=== PATIENT | male | born 1945 | race Caucasian/White ===

== ENCOUNTER 2019-06-16 07:26 | Outpatient (CLI) | payer MEDICARE, SELFPAY ==
--- NOTE | 2019-06-24 12:49 | SLEEP_ITS ---
Home Sleep Test. DATE OF STUDY: 06/16/2019 ORDERING PHYSICIAN: Jose Guadalupe Fountain M.D. REASON FOR THE STUDY: Sleep apnea, snoring. HISTORY: The patient is a 74-year-old man, 5 feet 11 inches tall, weighing 230 pounds with a body mass index of 32. He has a history of loud snoring, is constantly loud enough that others complain about it. He frequently awakens from sleep feeling short of breath with heartburn, belching, and coughing. He wakes up during the night, early in the morning, and has excessive daytime sleepiness. He occasionally has trouble sleeping with a cold. He frequently gasps for breath at night. He frequently has problems reported to him by others. He occasionally sweats excessively at night, frequently notices his heart pounding irregularly at night, constantly falls asleep during the day, although not involuntarily. He denies falling asleep while driving or with physical effort. He frequently has loss of muscle tone with strong emotion. He denies having daytime difficulties due to excessive sleepiness, he is retired. He does not feel paralyzed on waking or falling asleep. He rarely has vivid dreamlike scenes upon awakening or falling asleep. He is never afraid to go to sleep. He frequently has nightmares. He occasionally remembers his dreams. He constantly has racing thoughts. He occasionally feels sad or depressed. He constantly has anxiety. He frequently notices parts of his body jerking, constantly kicks at night, constantly has crawly achy feelings in his legs and leg pain during the night. He occasionally has morning jaw pain. He frequently grinds his teeth at night and is bothered by pain during the day. He constantly is awakened by pain at night. He frequently wakes up feeling stiff in the morning with sore achy muscles. He occasionally wakes up with pain in the neck and spine. He has dizziness, fatigue, memory problems, tension, depression, and nightmares. Normal bedtime is 9:30 p.m., taking 20 minutes to fall asleep typically waking 3 or 4 times during the night. When these events occur, he will try to go back to sleep. He does not mention whether or not he has nocturia. He wakes in the morning at 6 o'clock. Weekend schedule reveals goes to bed at 10 p.m. and wakes at 7 a.m. He does take naps in the afternoon or evening. A short nap can be refreshing. He feels better in the morning than other times of day. MEDICAL COMORBIDITIES: Diabetes mellitus type 2 with hyperglycemia, history of sinusitis, cough, hypertension. MEDICATIONS: 1. Gabapentin 400 mg b.i.d. 2. Metformin 1000 mg twice a day. 3. Rosuvastatin 40 mg a day. 4. Tamsulosin 0.4 mg daily. 5. Paroxetine 40 mg a day for depression. 6. Levothyroxine 137 mcg a day for hypothyroidism. 7. NovoLog insulin through a pump. HABITS: Never smoked tobacco. Caffeine, 2 cups of coffee a day. No alcohol. No recreational drugs. DESCRIPTION OF THE STUDY: On the [place] Sleepiness Scale, his score is 13. This was conducted as an unattended type 3 portable home sleep test using 4 channel monitoring including respiratory effort channel, snoring channel, oxygen saturation channel, and heart rate channel. The study was scored using CMS guidelines. Duration 8 hours 47 minutes. The apnea-hypopnea index is 10. Oxygen desaturation index is 9. Lowest desaturation is 83%. He had 24 apneas, the majority 83% or 20 apneas were obstructive, 17% or 4 apneas were central. He had 62 hypopneas, 686 snoring events, and 76 desaturations spending 133 minutes or 25% of the study below 88% saturation. Heart rate ranged from 60 to 88. IMPRESSION: 1. This home sleep test shows evidence of at least mild obstructive sleep apnea syndrome G47.33 with an apnea-hypopnea index of 10, d
== END 2019-06-16 07:27 | disposition home or self-care (01) ==
LOC: ANHCSM 07:27
PROVIDERS: PCP Family Medicine; Visit Provider Family Medicine
DX: G47.30 Sleep apnea, unspecified (principal); G47.10 Hypersomnia, unspecified; R06.83 Snoring; E11.9 Type 2 diabetes mellitus without complications
CPT/HCPCS: 95806

== ENCOUNTER 2019-12-27 15:52 | Outpatient (CLI) | payer MEDICARE, SELFPAY ==
[2019-12-27 16:30] LABS: Hematocrit 41.9 % (42.0-52.0); Hemoglobin 13.7 g/dL (14.0-18.0)
--- NOTE | 2019-12-27 16:36 | ECG_ITS ---
Measurements Intervals [place] Rate: 68 P: 66 [place]: 188 QRS: -33 QRSD: 126 T: 11 QT: 378 QTc: 403 Interpretive Statements SINUS RHYTHM RIGHT BUNDLE BRANCH BLOCK INFERIOR INFARCT, AGE INDETERMINATE ABNORMAL ECG Electronically Signed On 12-27-2019 16:45:35 CDT by Wesley Frederick D.O.
[2019-12-27 16:41] LABS: Urine Cotinine NEGATIVE
[2019-12-27 16:41] LABS: Albumin Level 4.5 g/dL (3.5-5.1); Estimated Glomerular Filt Rate 54
== END 2019-12-27 15:53 | disposition home or self-care (01) ==
PROVIDERS: PCP Family Medicine; Visit Provider Orthopaedic Surgery
DX: Z01.818 Encounter for other preprocedural examination (principal); M17.12 Unilateral primary osteoarthritis, left knee; I45.10 Unspecified right bundle-branch block; E11.9 Type 2 diabetes mellitus without complications; E78.5 Hyperlipidemia, unspecified; Z79.4 Long term (current) use of insulin
CPT/HCPCS: 80307; 82040; 82565; 83036; 85014; 85018; 93005

== ENCOUNTER 2020-01-05 09:27 | Outpatient (CLI) | payer MEDICARE, SELFPAY ==
--- NOTE | 2020-01-05 10:30 | NEURO_ITS ---
Patient Number: [id number] Impression: # Insulin dependent diabetic complains of numbness of left hand. # Left ulnar neuropathy across the elbow. # Needle/EMG exam abnormal. # Clinical correlation recommended. Nerve Conduction Studies Anti Sensory Summary Table Stim Site NR Peak (ms) P-T Amp (?V) Site1 Site2 Delta-P (ms) Dist (cm) Aravind (m/s) Left Median Anti Sensory (2-3nd Digit) Wrist 3.3 45.4 Wrist 2-3nd Digit 3.3 14.0 42 Wrist 3.3 20.5 Wrist 2-3nd Digit 3.3 14.0 42 Left Radial Anti Sensory (Base 1st Digit) Wrist 2.4 13.8 Wrist Base 1st Digit 2.4 0.0 Left Ulnar Anti Sensory (5th Digit) Wrist 3.5 9.4 Wrist 5th Digit 3.5 14.0 40 Motor Summary Table Stim Site NR Onset (ms) O-P Amp (mV) Site1 Site2 Delta-0 (ms) Dist (cm) Aravind (m/s) Left Median Motor (Abd Poll Brev) Wrist 3.7 4.6 Elbow Wrist 5.8 31.0 53 Elbow 9.5 2.0 Left Ulnar Motor (Abd Dig Minimi) Wrist 3.0 6.1 A Elbow Wrist 7.9 31.0 39 A Elbow 10.9 3.9 B Elbow Wrist 5.6 25.0 45 B Elbow 8.6 4.0 F Wave Studies NR F-Lat (ms) L-R F-Lat (ms) Left Median (Mrkrs) (Abd Poll Brev) 32.17 Left Ulnar (Mrkrs) (Abd Dig Min) 33.69 EMG Side Muscle Nerve Root Ins Act Fibs Amp Dur Recrt Comment Left 1stDorInt Ulnar C8-T1 Nml Nml Incr >12ms Reduced Left Ext Indicis Radial (Post Int) C7-8 Nml Nml Nml Nml Nml Left Ext Digitorum Radial (Post Int) C7-8 Nml Nml Nml Nml Nml Left BrachioRad Radial C5-6 Nml Nml Nml Nml Nml Left PronatorTeres Median C6-7 Nml Nml Nml Nml Nml Left Abd Poll Brev Median C8-T1 Nml Nml Nml Nml Nml Left ABD Dig Min Ulnar C8-T1 Nml Nml Incr >12ms Reduced MTDD
== END 2020-01-05 09:28 | disposition home or self-care (01) ==
PROVIDERS: PCP Family Medicine; Visit Provider Physician Assistant
DX: M79.602 Pain in left arm (principal); R20.0 Anesthesia of skin; E11.9 Type 2 diabetes mellitus without complications; G56.22 Lesion of ulnar nerve, left upper limb; Z79.4 Long term (current) use of insulin
CPT/HCPCS: 95886; 95909

== ENCOUNTER 2020-01-06 07:42 | Outpatient (CLI) | payer MEDICARE, SELFPAY ==
[2020-01-06 09:22] LABS: Basophils Percent Auto 0.6 % (0.2-1.2); Eosinophils Absolute Auto 0.2 K/mm3 (0-0.3); Eosinophils Percent Auto 3.6 % (0-4.4); Hematocrit 41.1 % (42.0-52.0); Hemoglobin 13.5 g/dL (14.0-18.0); Immature Granulocyte Absolute 0.01 K/mm3 (0.00-0.031); Immature Granulocyte Percent A 0.2 % (0-0.5); Lymphocytes Percent Auto 21.7 % (18.3-44.2); Mean Corpuscular HGB Conc 32.8 g/dl (32-36); Mean Corpuscular Hemoglobin 29.2 pg (26-34); Monocytes Absolute Auto 0.5 K/mm3 (0.1-0.6); Monocytes Percent Auto 9.5 % (2.6-8.5); Neutrophils Absolute Auto 3.3 K/mm3 (1.3-6.7); Neutrophils Percent Auto 64.4 % (45.5-73.1); Platelet Count Result 179 k/mm3 (150-375); Red Blood Count 4.62 M/mm3 (4.6-6.20); Red Cell Distribution Width 12.6 % (11.5-14.5); White Blood Count 5.1 K/mm3 (4.5-10.0)
[2020-01-06 09:39] LABS: Anion Gap 7 mmol/L (8-16); Blood Urea Nitrogen 19 mg/dL (9-20); Carbon Dioxide 29 mmol/L (22-30); Chloride 105 mmol/L (98-107); Estimated Glomerular Filt Rate > 60; Glucose 167 mg/dL (75-110); Potassium 4.9 mmol/L (3.4-5.0); Sodium 141 mmol/L (137-145)
== END 2020-01-06 07:43 | disposition home or self-care (01) ==
LOC: ANHSURGERY 07:44
PROVIDERS: Anesthesiology; PCP Family Medicine; Visit Provider Orthopaedic Surgery
DX: M17.12 Unilateral primary osteoarthritis, left knee (principal); E11.65 Type 2 diabetes mellitus with hyperglycemia; Z79.4 Long term (current) use of insulin; Z01.818 Encounter for other preprocedural examination
CPT/HCPCS: 36415; 80048; 85025; 87081

== ENCOUNTER 2020-01-08 01:26 | Outpatient (CLI) | payer MEDICARE, SELFPAY ==
[2020-01-08 17:59] LABS: SARS-CoV-2 RNA PCR Negative
== END 2020-01-08 01:27 | disposition home or self-care (01) ==
LOC: ANHCOVIDDT 01:27
PROVIDERS: Internal Medicine Critical Care Medicine; PCP Family Medicine; Visit Provider Orthopaedic Surgery
DX: Z01.812 Encounter for preprocedural laboratory examination (principal); Z20.828 Contact with and (suspected) exposure to other viral communicable diseases
CPT/HCPCS: 87635; C9803; U0003

== ENCOUNTER 2020-01-11 08:51 | Outpatient (CLI) | payer MEDICARE, SELFPAY ==
--- NOTE | 2020-01-25 16:27 | WPDSLEEPSTUD ---
Sleep Study Date of Study: 01/11/20 Ordering Provider: Nav Cabrera PA-C Interpreting Physician: Heidy Sánchez MD Sleep Study Type: CPAP Titration Height: 1.8 m Weight: 104.326 kg Body Mass Index: 32.1 Neck Circumference: 45.72 cm [place]: 8 Reason for Sleep Study Home sleep test June 16, 2019 with mild obstructive sleep apnea AHI 10 with desaturation 83% and low baseline saturation during the study at 89%, mostly obstructive events 87%. Sleep History Dat Morales is a 75-year-old man, 5 feet 11 inches tall, weighing 230 pounds with a body mass index of 32. His home sleep test on 06/16/2019 showed an AHI of 10 with desaturation to 83% and a low baseline of 89%. Most of his apneas 83% were obstructive. Due to his low baseline O2 saturaiton and 17% centrals, he returns to the sleep lab for a CPAP titration. His initial [place] was 13 however his current survey reveals that it is 8. He has a history of loud snoring, is constantly loud enough that others complain about it. He frequently awakens from sleep feeling short of breath with heartburn, belching, and coughing. He wakes up during the night, early in the morning, and has excessive daytime sleepiness. He occasionally has trouble sleeping with a cold. He frequently gasps for breath at night. He frequently has problems reported to him by others. He occasionally sweats excessively at night, frequently notices his heart pounding irregularly at night, constantly falls asleep during the day, although not involuntarily. He denies falling asleep while driving or with physical effort. He frequently has loss of muscle tone with strong emotion. He denies having daytime difficulties due to excessive sleepiness, he is retired. He does not feel paralyzed on waking or falling asleep. He rarely has vivid dreamlike scenes upon awakening or falling asleep. He is never afraid to go to sleep. He frequently has nightmares. He occasionally remembers his dreams. He constantly has racing thoughts. He occasionally feels sad or depressed. He constantly has anxiety. He frequently notices parts of his body jerking, constantly kicks at night, constantly has crawly achy feelings in his legs and leg pain during the night. He occasionally has morning jaw pain. He frequently grinds his teeth at night and is bothered by pain during the day. He constantly is awakened by pain at night. He frequently wakes up feeling stiff in the morning with sore achy muscles. He occasionally wakes up with pain in the neck and spine. He has dizziness, fatigue, memory problems, tension, depression, and nightmares. Normal bedtime is 9:30 p.m., taking 20 minutes to fall asleep typically waking 3 or 4 times during the night. When these events occur, he will try to go back to sleep. He does not mention whether or not he has nocturia. He wakes in the morning at 6 o'clock. Weekend schedule reveals goes to bed at 10 p.m. and wakes at 7 a.m. He does take naps in the afternoon or evening. A short nap can be refreshing. He feels better in the morning than other times of day. 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
[2020-01-26 13:11] VITALS: BMI 32.1
== END 2020-01-11 08:52 | disposition home or self-care (01) ==
PROVIDERS: PCP Family Medicine; Visit Provider Physician Assistant
DX: G47.33 Obstructive sleep apnea (adult) (pediatric) (principal)
CPT/HCPCS: 95811

== ENCOUNTER 2020-01-22 08:45 | Outpatient (CLI) | payer MEDICARE, SELFPAY ==
[2020-01-22 17:37] LABS: SARS-CoV-2 RNA PCR Negative
== END 2020-01-22 08:46 | disposition home or self-care (01) ==
LOC: ANHCOVIDDT 08:47
PROVIDERS: PCP Family Medicine; Visit Provider Orthopaedic Surgery
DX: Z01.812 Encounter for preprocedural laboratory examination (principal); Z20.828 Contact with and (suspected) exposure to other viral communicable diseases
CPT/HCPCS: 87635; C9803; U0003

== ENCOUNTER 2020-01-25 16:20 | Inpatient (IN) | payer MEDICARE, SELFPAY ==
[2020-01-06 07:59] VITALS: BMI 33.3
[2020-01-06 08:21] VITALS: BP 132/68; PULSE 66; RESP 16; TEMP 37.2; O2SAT 97
[2020-01-25] VITALS (12 sets, daily range): BP systolic 101–134; BP diastolic 50–66; PULSE 62–83; RESP 10–16; TEMP 36.1–36.8; O2SAT 94–97
--- NOTE | ~2020-01-25 | XR_ITS ---
EXAMINATION: XR knee LT 2V DATE: 01/25/2020 14:07 CDT INDICATION: Left total knee arthroplasty TECHNIQUE: 2 views left knee FINDINGS: There is a left total knee arthroplasty in expected position. Subcutaneous gas with fluid and air in the joint are consistent with recent surgery. No evidence of periprosthetic fracture. IMPRESSION: 1. Recent left total knee arthroplasty. Reviewed, dictated and finalized at location B.
--- NOTE | 2020-01-25 07:16 | WPDHPUPDATE1 ---
History and Physical Update Update Date/Time: 01/25/20 07:16 History and Physical has been reviewed, including an updated exam of the patient. There are NO changes in the patient's condition. Risks, benefits, and alternatives have been discussed and questions answered. Patient agrees to proceed with procedure.
[2020-01-25 08:45] LABS: Glucose Point of Care 213 (65-105)
[2020-01-25] MEDS: LACTATED RINGERS 1,000 ML 30 ML IV CONT ×2 (08:45→13:16)
[2020-01-25] MEDS: ACETAMINOPHEN 500 MG TABLET 1000 MG PO (09:00)
[2020-01-25] MEDS: TRANEXAMIC ACID 1,000MG/ISO100 1,000 MG/100 ML BAG 200 MG IVPB (09:10)
[2020-01-25] MEDS: KETOROLAC 15 MG/ML VIAL (*BKC) IV PUSH (09:19)
--- NOTE | 2020-01-25 09:21 | SUR.PREOP ---
0915- PT HAS A INSULIN PUMP RUNNING AT 2 UNITS PER HOUR WITH NOVALOG. PRE OP BLOOD SUGAR IS 213. SPOKE WITH DR. HOPSON AND HE STATED TO LET PT TREAT HE WOULD AND INSULIN PUMP WILL GO OFF DURING PROCEDURE. PT STATED HE WOULD DOSE HIMSELF WITH A EXTRA 2 UNITS. PT DOSED EXTRA 2 UNITS @ 09. WILL RECHECK BLOOD SUGAR BEFORE PT GOES TO OR.
--- NOTE | 2020-01-25 09:22 | WPDANESEPPF ---
Anes - Initial Pre Proc Eval Procedure: Operation Date: 01/25/20 10:30 Proposed Procedures p Left Total Knee Arthroplasty - Stalin Guajardo MD Date/Time: 01/25/20 09:22 Surgeon: Stalin Guajardo MD Pre Op Diagnosis: DJD left knee Patient Data Age: 75 Gender: M Height: 1.8 m Weight: 107.4 kg Last Vital Signs Temp 36.1 C L 01/25/20 08:56 Pulse 71 01/25/20 08:56 Resp 16 01/06/20 08:21 BP 132/61 01/25/20 08:56 Pulse Ox 96 01/25/20 08:56 Allergies Allergy/AdvReac Type Severity Reaction Status Date / Time empagliflozin Allergy Severe DIABETIC Verified 01/13/20 15:16 KETOACIDOSIS Home Medications Medication Instructions Recorded Confirmed Type aspirin 81 mg tablet,delayed 81 mg PO DAILY 04/20/19 01/25/20 History release gabapentin 400 mg capsule 400 mg PO TID 04/20/19 01/25/20 History metformin 1,000 mg tablet 1,000 mg PO BID 04/20/19 01/25/20 History paroxetine HCl 40 mg tablet 40 mg PO DAILY 04/20/19 01/25/20 History rosuvastatin 40 mg tablet 40 mg PO QPM 04/20/19 01/25/20 History tamsulosin 0.4 mg capsule 0.4 mg PO QPM 04/20/19 01/25/20 History insulin admin supplies #1 each 12/27/19 01/13/20 History Novolog U-100 Insulin aspart 2 units CONTINUOUS SUB-Q INFUSN 01/06/20 01/25/20 History (VIA WEARABLE INJECTR) Q60M ascorbic acid (vitamin C) 500 mg PO QAM 01/06/20 01/25/20 History cyanocobalamin (vitamin B-12) 1,000 mcg PO DAILY 01/06/20 01/25/20 History fluticasone propionate 2 spray INTRANASAL PRN PRN 01/06/20 01/25/20 History levothyroxine 100 mcg PO DAILY 01/06/20 01/25/20 History melatonin 6 mg PO HS PRN 01/06/20 01/25/20 History polyvinyl alcohol [Artificial 1 drp OPHTHALMIC (EYE) QID 01/06/20 01/25/20 History Tears (polyvin alc)] tadalafil 5 mg PO DAILY PRN 01/06/20 01/13/20 History Laboratory Tests 01/25/20 08:42 POC Capillary Glucose 213 mg/dl H mg/dl (65-105) ECG: Date of Service: 12/27/19 Procedure(s): CA 12 lead EKG Accession Number(s): [id number] cc: ~ Measurements Intervals [place] Rate: 68 P: 66 [place]: 188 QRS: -33 QRSD: 126 T: 11 QT: 378 QTc: 403 Interpretive Statements SINUS RHYTHM RIGHT BUNDLE BRANCH BLOCK INFERIOR INFARCT, AGE INDETERMINATE ABNORMAL ECG Electronically Signed On 12-27-2019 16:45:35 CDT by Wesley Frederick D.O. 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
--- NOTE | 2020-01-25 09:30 | WPDANESPNB ---
Anes - Peripheral Nerve Block Date/Time: 01/25/20 09:30 I have discussed with the patient/family/POA the placement of a peripheral nerve block for post-operative pain management, including associated risks, benefits, complications, and side effects. Alternative methods of post-operative analgesia were detailed. Questions were solicited and answers provided to the satisfaction of the patient/family/POA. Time-Out: A pre-procedural Time-Out was completed immediately before starting the procedure and confirmed: Patient Identification, Site, Procedure, Patient Position and the Availability of Requisite Equipment. Clinical Indications: Acute post-operative pain management requested by the operative surgeon. Nerve Block Insertion Note Anes-nerve block: adductor canal left Patient position: supine Skin prep: chlorhexidine Needle: 22 gauge, stimulating, insulated echogenic needle. Needle length: 80 mm Technique: ultrasound Technique comment: in plane Injectate: bupivacaine 0.5% with epi 5 mcg/ml (30cc) Observations: tolerated well Complications: none Procedure start time:: 1025 Procedure end time:: 1030
[2020-01-25 10:30] LABS: Glucose Point of Care 188 (65-105)
[2020-01-25] MEDS: ceFAZolin 2 GM/D5W 50 ML 2 GM/50 ML BAG IVPB (10:44)
[2020-01-25 13:35] LABS: Glucose Point of Care 173 (65-105)
--- NOTE | 2020-01-25 13:35 | SUR.PHASEI ---
1320- Clarified with Chris Galvez CRNA patient okay to resume use of insulin pump with BG 173. 1335- Patient resumed insulin pump.
--- NOTE | 2020-01-25 13:49 | P.OP_ITS ---
Procedure Note - Detailed Date of procedure: 01/25/20 Pre-op diagnosis: DJD left knee Post-op diagnosis: same Procedure performed: Total knee arthroplasty, left Description of procedure: Large medial to lateral sizing. Size 7 fit best M-L, despite modest anterior offset due to 1.5mm downsizing. Bone quality fair-good. PCL well preserved. Standard bone resections. Implants: Alecia [employer] size 7 cemented CR femur, size 7 cemented low- profile tibia, 13 mm CR polyethylene insert, 40 mm asymmetric all poly patellar component. Anesthesia: GETA and regional (subsartorial nerve block) Surgeon: Stalin Guajardo MD Estimated blood loss (mL): 100 Tourniquet time (min): 48 Drains: No Pathology: none sent Complications: None Condition: stable Disposition: PACU Findings: OPERATIVE DETAILS: The patient was given a nerve block preoperatively, and then brought to the operating room. A general anesthetic was administered. The leg was prepped and draped in the usual sterile fashion. The limb was elevated and the tourniquet inflated to 300 mmHg during initial exposure, and cementation. A longitudinal incision was created along the medial border of the patella and patellar tendon, and a minimally invasive optimized mid-vastus approach to the knee was performed. A mild medial release was taken. The knee was then flexed. The osteophytes were carefully removed. The intramedullary guide was placed in the femoral canal. The distal femoral resection was then taken with the oscillating saw. The collateral ligaments were carefully protected. The tibia was carefully exposed. The jig was applied, and the proximal tibia was resected according to preoperative plan. The pain anesthetic mixture was injected into the periarticular tissues. The knee was balanced in extension, and appropriate releases were taken where needed. The anterior cruciate ligament and meniscal remnants were removed. The posterior cruciate ligament was preserved. The patella was measured. Patellar resection was carried out with the oscillating saw. The lug holes drilled. The femur was sized and rotation assessed using a combination of gap balancing, posterior referencing, and the AP axis. The 4 in 1 cutting block was used to finish the femoral cuts after equal gaps were assured. The lug holes were drilled. The osteophytes were carefully removed from the back of the knee. The knee was copiously irrigated with antibiotic solution periodically throughout the procedure. The spacer block was used to confirm equal flexion and extension gaps. Further releases were performed as needed. The tibia was sized and broached. The bony surfaces were prepared for cementing with pulsatile lavage. The real tibial component and femoral components were cemented into position. Excess cement was carefully removed. The polyethylene insert was placed. The patella component was subsequently cemented. Patellar tracking was carefully assessed. No additional releases were required. The wound was closed with #1 Vicryl suture, #2 Quill suture, 1-Bjzajd-mco suture, and 2-0 Strata-fix suture followed by Steri-Strips. A sterile bulky dressing was applied. Meticulous hemostasis was maintained throughout the procedure. There were no complications. The patient was extubated and brought to the recovery room in stable condition after the application of sterile dressing with Jerome bandage.
--- NOTE | 2020-01-25 13:52 | SUR.PHASEI ---
1335- Patient instructed to resume insulin pump @ 2 units per hour of Novolog. Patient resumed insulin pump at this time with BG of 173.
[2020-01-25 15:17] LABS: Glucose Point of Care 132 (65-105)
[2020-01-25 16:37] LABS: Glucose Point of Care 141 (65-105)
[2020-01-25] MEDS: ASPIRIN 81 MG ENTERIC TABLET PO (17:35)
[2020-01-25] MEDS: ROSUVASTATIN 10 MG TABLET 40 MG PO (17:35)
[2020-01-25] MEDS: metFORMIN HCL 500 MG TABLET 1000 MG PO (17:35)
[2020-01-25] MEDS: TAMSULOSIN HCL 0.4 MG CAPSULE PO (17:35)
[2020-01-25] MEDS: GABAPENTIN 400 MG CAPSULE PO (17:35)
[2020-01-25] MEDS: MELOXICAM 7.5 MG TABLET PO (17:35)
[2020-01-25] MEDS: DOCUSATE SODIUM 100 MG CAPSULE PO (17:35)
[2020-01-25] MEDS: SENNOSIDES 8.6 MG TABLET 17.2 MG PO (21:25)
[2020-01-26 00:02] LABS: Glucose Point of Care 87 (65-105)
[2020-01-26 00:15] VITALS: BP 121/51; PULSE 66; RESP 16; TEMP 36.1; O2SAT 95
[2020-01-26 00:21] LABS: Glucose Point of Care 106 (65-105)
[2020-01-26 02:13] LABS: Glucose Point of Care 106 (65-105)
[2020-01-26 04:15] VITALS: BP 127/53; PULSE 66; RESP 16; TEMP 36.4; O2SAT 96
[2020-01-26] MEDS: LEVOTHYROXINE SODIUM 100 MCG TABLET PO (06:18)
[2020-01-26 06:19] LABS: Basophils Percent Auto 0.1 % (0.2-1.2); Eosinophils Absolute Auto 0.1 K/mm3 (0-0.3); Eosinophils Percent Auto 1.6 % (0-4.4); Hematocrit 36.7 % (42.0-52.0); Hemoglobin 11.6 g/dL (14.0-18.0); Immature Granulocyte Absolute 0.02 K/mm3 (0.00-0.031); Immature Granulocyte Percent A 0.3 % (0-0.5); Immature Platelet Fraction Pct 2.9 % (0.9-11.2); Lymphocytes Absolute Auto 0.82 K/mm3 (0.9-3.2); Lymphocytes Percent Auto 11.7 % (18.3-44.2); Mean Corpuscular HGB Conc 31.6 g/dl (32-36); Mean Corpuscular Hemoglobin 29.8 pg (26-34); Mean Corpuscular Volume 94.3 fl (80-100); Mean Platelet Volume 10.1 fl (7.4-10.4); Monocytes Absolute Auto 0.8 K/mm3 (0.1-0.6); Monocytes Percent Auto 10.9 % (2.6-8.5); Neutrophils Absolute Auto 5.3 K/mm3 (1.3-6.7); Neutrophils Percent Auto 75.4 % (45.5-73.1); Platelet Count Result 133 k/mm3 (150-375); Red Blood Count 3.89 M/mm3 (4.6-6.20)
[2020-01-26 06:22] LABS: Anion Gap 4 mmol/L (8-16); Blood Urea Nitrogen 21 mg/dL (9-20); Carbon Dioxide 32 mmol/L (22-30); Chloride 104 mmol/L (98-107); Estimated CRCL calculation 57 ml/min; Estimated Glomerular Filt Rate 54; Glucose 144 mg/dL (75-110); Potassium 4.7 mmol/L (3.4-5.0); Sodium 140 mmol/L (137-145)
[2020-01-26 07:52] LABS: Glucose Point of Care 92 (65-105)
[2020-01-26] MEDS: CYANOCOBALAMIN 1,000 MCG TABLET 1000 MCG PO (08:43)
[2020-01-26] MEDS: metFORMIN HCL 500 MG TABLET 1000 MG PO (08:43)
[2020-01-26] MEDS: ASPIRIN 81 MG ENTERIC TABLET PO (08:43)
[2020-01-26] MEDS: polyethylene glycoL 3350 17 GM POWD.PACK PO (08:43)
[2020-01-26] MEDS: DOCUSATE SODIUM 100 MG CAPSULE PO (08:44)
[2020-01-26] MEDS: MELOXICAM 7.5 MG TABLET PO (08:44)
[2020-01-26] MEDS: GABAPENTIN 400 MG CAPSULE PO (08:44)
[2020-01-26] MEDS: PARoxetine 20 MG TABLET 40 MG PO (08:44)
[2020-01-26] MEDS: oxyCODONE HCL (*CRX) 5 MG TAB IR 10 MG PO ×2 (08:44→11:58)
[2020-01-26 09:54] VITALS: O2SAT 93
[2020-01-26 10:30] VITALS: BMI 33.0
--- NOTE | 2020-01-26 12:03 | PCNSR ---
On 01/26/20, the student, Lynne Jacinto, provided care and completed [facility] documentation on this patient. I have reviewed the student's documentation and agree with the findings.
--- NOTE | 2020-01-26 13:01 | WPDANESPN ---
Anes - Prog Note Post-Op Date/Time: 01/26/20 13:01 Cardiovascular status: normal Respiratory status: normal Airway patency: baseline Mental status: baseline Post-Op hydration status: normal Vital Signs: Last Vital Signs Temp 97.5 F L 01/26/20 04:15 Pulse 66 01/26/20 04:15 Resp 16 01/26/20 04:15 BP 127/53 L 01/26/20 04:15 Pulse Ox 93 01/26/20 09:54 Pain Score (VAS): 06/14 I/O: Intake & Output 01/25/20 01/26/20 01/26/20 23:59 07:59 15:59 Intake Total 730 450 100 Output Total 1000 Balance 730 -550 100 Laboratory Tests 01/26/20 05:31 01/26/20 05:31 01/25/20 01/25/20 01/25/20 13:22 15:15 16:32 WBC RBC Hgb Hct MCV MCH MCHC RDW Plt Count MPV Immature Gran % (Auto) Neut % (Auto) Lymph % (Auto) [place] % (Auto) Eos % (Auto) Baso % (Auto) Lymph # (Auto) [place] # (Auto) Eos # (Auto) Baso # (Auto) Abs Immat Gran (auto) Absolute Neuts (auto) Absolute Nucleated RBC Nucleated RBC % % Immature Plt Fraction Sodium Potassium Chloride Carbon Dioxide Anion Gap BUN Creatinine Estim Creat Clear Calc Estimated GFR Glucose POC Capillary Glucose 173 H 132 H 141 H Calcium 01/25/20 01/25/20 01/26/20 22:42 23:59 00:18 WBC RBC Hgb Hct MCV MCH MCHC RDW Plt Count MPV Immature Gran % (Auto) Neut % (Auto) Lymph % (Auto) [place] % (Auto) Eos % (Auto) Baso % (Auto) Lymph # (Auto) [place] # (Auto) Eos # (Auto) Baso # (Auto) Abs Immat Gran (auto) Absolute Neuts (auto) Absolute Nucleated RBC Nucleated RBC % % Immature Plt Fraction Sodium Potassium Chloride Carbon Dioxide Anion Gap BUN Creatinine Estim Creat Clear Calc Estimated GFR Glucose POC Capillary Glucose 106 87 106 Calcium 01/26/20 01/26/20 01/26/20 05:31 05:31 07:47 WBC 7.0 RBC 3.89 L Hgb 11.6 L Hct 36.7 L MCV 94.3 MCH 29.8 MCHC 31.6 L RDW 13.0 Plt Count 133 L MPV 10.1 Immature Gran % (Auto) 0.3 Neut % (Auto) 75.4 H Lymph % (Auto) 11.7 L [place] % (Auto) 10.9 H Eos % (Auto) 1.6 Baso % (Auto) 0.1 L Lymph # (Auto) 0.82 L [place] # (Auto) 0.8 H Eos # (Auto) 0.1 Baso # (Auto) 0.0 Abs Immat Gran (auto) 0.02 Absolute Neuts (auto) 5.3 Absolute Nucleated RBC 0.0 Nucleated RBC % 0.0 % Immature Plt Fraction 2.9 Sodium 140 Potassium 4.7 Chloride 104 Carbon Dioxide 32 H Anion Gap 4 L BUN 21 H Creatinine 1.30 Estim Creat Clear Calc 57 Estimated GFR 54 L Glucose 144 H POC Capillary Glucose 92 Calcium 9.0 Post-procedural complaints: none Patient Feedback: Patient satisfied with anesthetic care.
--- NOTE | 2020-01-26 14:35 | PM.DS ---
DS: Admitting Diagnosis Admitting Diagnosis Admitting Diagnosis: DJD left knee DS: Discharge Diagnosis Discharge Diagnosis (1) Aftercare following left knee joint replacement surgery: Code(s): Z47.1 - Aftercare following joint replacement surgery; Z96.652 - Presence of left artificial knee joint Status: Acute DS: Summary Hospital Course Reason for hospitalization: Total knee arthroplasty. Hospital Course: Tolerated surgery well. Progressed appropriately with therapy. Status at Discharge Functional status at discharge: uses cane/walker Overall status at discharge: patient is progressing back to baseline Time Spent with Patient Time attestation: Total time spent providing and/or coordinating discharge services: Exam Const: General: no acute distress Resp: Effort & Inspection: normal respiratory effort Skin: Other: Wound healing well. Mepilex dressing intact. No hematoma or drainage. Neuro: Motor exam (neuro): 5/5 motor strength present throughout Sensory Exam: normal sensation Psych: Mental Status: mental status grossly normal Speech and movement: Normal speech and movement present Discharge Plan Discharge Attending physician on discharge: Stalin Guajardo Consulting providers: Devaughn Rubio ; Osman Durand Discharging Clinician: Stalin Guajardo Patient Disposition: Home, Self-Care Activity: may shower Diet: as tolerated Wound Care Instructions: follow printed instructions Discharge Instructions: See instruction sheet. Patient Instructions: Pain Management (DC), Joint Replacement Surgery (DC), Knee Replacement (DC) Follow-up/Referrals: Stalin Guajardo MD [Physician] - Discharge Medications: New meloxicam 7.5 mg tablet 7.5 mg PO .twice daily Qty: 60 RF: 0 Continued (DME) InPen (for Novolog or Fiasp) Insulin Pen See Rx Instructions .ROUTE .MEDSUPPLY Qty: 1 RF: 0 gabapentin 400 mg capsule 400 mg PO BID RF: 0 metformin 1,000 mg tablet 1,000 mg PO BID RF: 0 paroxetine HCl 40 mg tablet 40 mg PO DAILY RF: 0 rosuvastatin 40 mg tablet 40 mg PO QPM RF: 0 aspirin 81 mg tablet,delayed release (DR/EC) 81 mg PO DAILY RF: 0 tamsulosin 0.4 mg capsule 0.4 mg PO QPM RF: 0 Novolog U-100 Insulin aspart 2 units continuous sub-Q infusn (via wearable injectr) Q60M RF: 0 levothyroxine 100 mcg Tablet 100 mcg PO DAILY RF: 0 melatonin 3 mg Tablet 6 mg PO HS PRN (Reason: Insomnia) RF: 0 tadalafil 5 mg Tablet 5 mg PO DAILY PRN (Reason: Erectile Dysfunction) RF: 0 fluticasone propionate 50 mcg/actuation spray,suspension 2 spray intranasal PRN PRN (Reason: Allergy Symptoms) RF: 0 polyvinyl alcohol [Artificial Tears (polyvin alc)] 1.4 % Drops 1 drp OPHTHALMIC (EYE) QID RF: 0 cyanocobalamin (vitamin B-12) 1,000 mcg Tablet 1,000 mcg PO DAILY RF: 0 ascorbic acid (vitamin C) 500 mg Capsule 500 mg PO QAM RF: 0 No Action oxycodone-acetaminophen 5-325 mg tablet 1 - 2 tablet PO Q4-6H MDD 8 tablets PRN (Reason: pain) Qty: 40 RF: 0 Date of admission: 01/25/20 16:20 Primary Care Provider: Jose Guadalupe Fountain Admitting Provider: Stalin Guajardo Attending physician on admission: Stalin Guajardo Condition: Stable Quality VTE Prophylaxis VTE prophylaxis: mechanical ordered (DANA talamantes and Donna)
--- NOTE | 2020-01-26 18:09 | PM.IMCN ---
HPI Data of Consult Consult date: 01/26/20 Requesting Physician: Stalin Guajardo MD Primary Care Provider: Jose Guadalupe Fountain MD Consult Narrative Narrative: Dat Morales is a 75 year old male postop day 1. Of total knee arthroplasty. Medical consult was requested initially postoperatively but today he is stable with no problems and is being discharged home per orthopedic surgery. He was not officially seen by the medical service and no formal consult was rendered. Thus no physical exam, review of systems, or other documentation was given. He will follow-up with Dr. Guajardo and his primary care doctor Александр WOOD Past Medical History Medical History (Updated 01/25/20 @ 17:01 by Heidy Sánchez MD) Abnormal EKG Acute sinusitis Arthritis of left knee BMI 33.0-33.9,adult Chronic knee pain after total replacement of both knee joints Controlled type 2 diabetes mellitus with hyperglycemia, with long-term current use of insulin Diabetic peripheral neuropathy Disturbance in sleep behavior Episode of apnea Glaucoma halfway (current) use of insulin Major depression, recurrent, chronic Mixed hyperlipidemia Obstructive sleep apnea (~06/2019) Pain and numbness of left upper extremity Posttraumatic stress disorder Type 2 diabetes mellitus with hyperglycemia Family History Family History Mother Patient's mother is , Onset Age: 63 Family history of malignant neoplasm Father Cerebrovascular accident, Onset Age: 89 Social History Social History Smoking status: Never smoker Second hand tobacco smoke exposure: No Additional smoking assessment comments: DENIES ANY FORM OF TOBACCO/NICOTINE USE Alcohol intake: never Substance use: never Living arrangements: with family Gender identity (if verbalized by the patient): Male Spiritual care concerns: No Meds Home Medications and Allergies Home Medications Medication Instructions Recorded Confirmed Type aspirin 81 mg tablet,delayed 81 mg PO DAILY 04/20/19 01/25/20 History release gabapentin 400 mg capsule 400 mg PO BID 04/20/19 01/25/20 History metformin 1,000 mg tablet 1,000 mg PO BID 04/20/19 01/25/20 History paroxetine HCl 40 mg tablet 40 mg PO DAILY 04/20/19 01/25/20 History rosuvastatin 40 mg tablet 40 mg PO QPM 04/20/19 01/25/20 History tamsulosin 0.4 mg capsule 0.4 mg PO QPM 04/20/19 01/25/20 History insulin admin supplies #1 each 12/27/19 01/25/20 History Novolog U-100 Insulin aspart 2 units CONTINUOUS SUB-Q INFUSN 01/06/20 01/25/20 History (VIA WEARABLE INJECTR) Q60M ascorbic acid (vitamin C) 500 mg PO QAM 01/06/20 01/25/20 History cyanocobalamin (vitamin B-12) 1,000 mcg PO DAILY 01/06/20 01/25/20 History fluticasone propionate 2 spray INTRANASAL PRN PRN 01/06/20 01/25/20 History levothyroxine 100 mcg PO DAILY 01/06/20 01/25/20 History melatonin 6 mg PO HS PRN 01/06/20 01/25/20 History polyvinyl alcohol [Artificial 1 drp OPHTHALMIC (EYE) QID 01/06/20 01/25/20 History Tears (polyvin alc)] tadalafil 5 mg PO DAILY PRN 01/06/20 01/13/20 History meloxicam 7.5 mg PO .twice daily #60 tablet 01/26/20 Rx oxycodone-acetaminophen 1 - 2 tablet PO Q4-6H PRN #40 01/26/20 Rx tablet MDD 8 tablets Allergies Allergy/AdvReac Type Severity Reaction Status Date / Time empagliflozin Allergy Severe DIABETIC Verified 01/25/20 15:35 KETOACIDOSIS Vital Signs Vital Signs - 24 hr 01/25/20 20:15 01/26/20 00:15 01/26/20 04:15 Temperature 36.1 C L 36.1 C L 36.4 C L Pulse Rate 64 66 66 Respiratory Rate 16 16 16 Blood Pressure 101/50 L 121/51 L 127/53 L Pulse Oximetry 94 95 96 01/26/20 09:54 Temperature Pulse Rate Respiratory Rate Blood Pressure Pulse Oximetry 93 Results Labs CBC & Chem 7: 01/26/20 05:31 01/26/20 05:31 Labs: Short CBC 01/26/20 Range/U
== END 2020-01-26 14:04 | disposition home or self-care (01) | DRG 470 ==
LOC: ANHSURGERY 16:36 → ANH2MED 16:36
PROVIDERS: Admitting Provider Orthopaedic Surgery; PCP Family Medicine; Visit Provider Orthopaedic Surgery
PROC: 0SRD0J9 Replacement of Left Knee Joint with Synthetic Substitute, Cemented, Open Approach (ICD-10-PCS; CPT 27447; principal; 2020-01-25 10:30)
DX: M17.12 Unilateral primary osteoarthritis, left knee (principal); E66.9 Obesity, unspecified; Z68.33 Body mass index [BMI] 33.0-33.9, adult; E11.42 Type 2 diabetes mellitus with diabetic polyneuropathy; E11.65 Type 2 diabetes mellitus with hyperglycemia; H40.9 Unspecified glaucoma; G47.33 Obstructive sleep apnea (adult) (pediatric); E78.2 Mixed hyperlipidemia; F43.10 Post-traumatic stress disorder, unspecified; Z96.651 Presence of right artificial knee joint; Z79.4 Long term (current) use of insulin
CPT/HCPCS: 36415; 73560; 80048; 85025; 85055; 86850; 86900; 86901; 87081; 87635; 94640; 97110; 97116; 97161; 97165; A9270; C1713; C1776; C9803; J0131; J0171; J0690; J1885; J2250; J2270; J2370; J2405; J2704; J2795; J3010; J7120; U0003

== ENCOUNTER 2021-02-19 13:47 | Outpatient (CLI) | payer MEDICARE, SELFPAY ==
--- NOTE | ~2021-02-19 | CT_ITS ---
EXAMINATION: CT abdomen pelvis wo con DATE: 02/19/2021 14:15 INDICATION: Ventral hernia without obstruction or gangrene TECHNIQUE: Computed tomography (CT) of the abdomen and pelvis was performed without intravenous contr ast. Automated exposure control and iterative reconstruction technique were employed. The dose-length product was 927.06 mGy-cm. COMPARISON: None FINDINGS: Discoid atelectasis/scarring at the left lung base. Heart size is normal. No pericardial or pleural e ffusion. Liver, gallbladder, bilateral adrenal glands and kidneys are normal. A few tiny dystrophic c alcification is at the body and uncinate process of the pancreas likely sequela of chronic pancreatit is. Multiple splenic calcification consistent with old granulomatous disease. Bowels including the ap pendix are normal. Bladder is normal. Mild prostatomegaly. Small fat-containing left inguinal hernia. Tiny fat-containing umbilical hernia. Nonspecific haziness to the fat near the root of the mesentery extending a few mildly prominent but still normal-sized likely reactive mesenteric lymph nodes. No a bnormal masses or pathologically enlarged abdominal or pelvic lymphadenopathy. No free intraperitonea l gas or fluid. Mild degenerative skeletal changes in the spine and pelvis. IMPRESSION: 1. Small fat-containing left inguinal and tiny fat-containing umbilical hernias. 2. Nonspecific mild haziness to the mesenteric fat which likely inflammatory in etiology with mild li ahsan reactive mesenteric lymphadenopathy. Reviewed, dictated and finalized at location A. [employer] IMPRESSION: 1. Small fat-containing left inguinal and tiny fat-containing umbilical hernias . 2. Nonspecific mild haziness to the mesenteric fat which likely inflammatory in etiology with mild likely reactive mesenteric lymphadenopathy.
== END 2021-02-19 13:48 | disposition home or self-care (01) ==
LOC: ANHIMG 13:57
PROVIDERS: PCP Family Medicine; Visit Provider Family Medicine
DX: K40.90 Unilateral inguinal hernia, without obstruction or gangrene, not specified as recurrent (principal); K42.9 Umbilical hernia without obstruction or gangrene
CPT/HCPCS: 74176

== ENCOUNTER 2021-11-22 12:57 | Outpatient (RCR) | payer MEDICARE, SELFPAY ==
[2021-11-22 13:32] VITALS: BP 128/60; PULSE 70; RESP 20; TEMP 36.2; O2SAT 96
[2021-11-22] MEDS: FAMOTIDINE 20 MG TABLET PO (13:34)
[2021-11-22] MEDS: ACETAMINOPHEN 325 MG TABLET 650 MG PO (13:34)
[2021-11-22] MEDS: diphenhydrAMINE HCl CAP 25 MG CAPSULE PO (13:34)
[2021-11-22] MEDS: BEBTELOVIMAB 175 MG/2 ML VIAL IV PUSH (13:57)
[2021-11-22 14:47] VITALS: BP 132/60; PULSE 56; O2SAT 97
== END 2021-11-22 16:00 ==
LOC: AMCINF 12:57
PROVIDERS: PCP Family Medicine; Referring Provider Family Medicine; Visit Provider Internal Medicine Hematology & Oncology
DX: U07.1 COVID-19 (principal); E11.9 Type 2 diabetes mellitus without complications; N18.9 Chronic kidney disease, unspecified
CPT/HCPCS: A9270; M0222; Q0222

== ENCOUNTER 2022-02-18 08:14 | Outpatient (CLI) | payer MEDICARE, SELFPAY ==
--- NOTE | ~2022-02-18 | CT_ITS ---
EXAMINATION: CT chest high resolution wo al DATE: 02/18/2022 08:38 INDICATION: Shortness of breath, history of asbestos exposure TECHNIQUE: Computed tomography (CT) of the chest was performed without intravenous contrast. The dose -length product (DLP) was 329.02 mGy-cm. Automated exposure control and iterative reconstruction tech [employer]que were employed. COMPARISON: None FINDINGS: There is mild atelectasis of the lingula. Subpleural groundglass opacities of the lower lob es and right middle lobe also likely represent atelectasis. A calcified left hilar lymph nodes consis tent with old granulomatous disease. No pleural effusion or pneumothorax. The heart size is normal. T here is calcified coronary artery atherosclerosis. A mildly enlarged precarinal lymph node measures 1 1 mm. There is mild thoracic spondylosis. IMPRESSION: 1. Mild atelectasis without specific findings of prior asbestos exposure. 2. Mildly enlarged precarinal lymph node, likely reactive. Reviewed, dictated and finalized at location F. [employer]
--- NOTE | 2022-02-18 17:17 | WPDSIXMINUTE ---
Six Minute Walk Procedure Procedure Performed Pulmonary Stress Test (6 min walk) Six Minute Walk Six Minute Walk: This is a 6 minute walk test. The test was performed and interpreted in accordance with the 2014 ERS/ATS task force guidelines. Findings: The patient's resting room air oxygen saturation measured by pulse oximetry was 95% and heart rate was 70 bpm. Patient ambulated for 335 meters and oxygen saturation remained 92 to 95%. Heart rate at the end of the study was 83 bpm. The patient did not qualify for supplemental oxygen at rest or with ambulation. There are no prior studies for comparison.
--- NOTE | 2022-02-18 17:18 | WPDPFTINT ---
PFT Procedure Performed PFT Procedure Performed Spirometry with Pre/Post Bronchodilator Plethysmography (Lung Vol) Diffusing Cap (DLCO) Flow Vol Loop PFT Interpretation This is a pulmonary function test with pre and post-bronchodilator spirometry, plethysmography and diffusing capacity. The test was performed and results interpreted in accordance with the 2019 and 2005 ATS/ERS Task Force guidelines respectively using the Global Lung Function Initiative-2012 reference equations. Patient demonstrated good effort and cooperation. Reproducibility criteria were met. The quality of the pre bronchodilator spirometry maneuver was Grade A and post bronchodilator spirometry maneuver was Grade A. of note the patient had difficulty with the forced inspiratory vital capacity on the spirometry. Findings: Spirometry: The contour the expiratory flow tracing is normal. The contour the inspiratory flow tracing on the pre bronchodilator efforts was truncated and appeared normal on the post bronchodilator efforts. The pre bronchodilator FVC is 2.97 L, 71% predicted. The pre bronchodilator FEV1 is 2.15 L, 69% predicted. The pre bronchodilator FEV1: FVC ratio 72%. The post bronchodilator FVC is 3.54 L, representing and 19% increase. The post bronchodilator FEV1 is 2.62 L, representing a 22% increase. The post bronchodilator FEV1: FVC ratio 74%. Plethysmography: The total lung capacity is 5.47 L, 76% predicted. The functional residual capacity is 2.58 L, 67% predicted. The residual volume is 2.25 L, 87% predicted. Diffusing capacity: The diffusing capacity unadjusted for hemoglobin and carboxyhemoglobin is 16.9, 67% predicted. The diffusing capacity adjusted for alveolar volume is 4.49, 121% predicted. Impression: There is a moderate restrictive ventilatory abnormality. The spirometry is normal without evidence of an obstructive abnormality. There is significant improvement after inhaling a single dose of albuterol. The diffusing capacity unadjusted for hemoglobin and carboxyhemoglobin is mildly decreased and normalizes when adjusted for alveolar volume. There are no prior studies for comparison
== END 2022-02-18 08:15 | disposition home or self-care (01) ==
PROVIDERS: PCP Family Medicine; Visit Provider Nurse Practitioner Family
DX: R06.02 Shortness of breath (principal); J61 Pneumoconiosis due to asbestos and other mineral fibers; R94.2 Abnormal results of pulmonary function studies; J98.11 Atelectasis
CPT/HCPCS: 71250; 94060; 94618; 94726; 94729

== ENCOUNTER 2022-08-12 15:31 | Inpatient (IN) | payer MEDICARE, SELFPAY ==
[2022-08-12] VITALS (10 sets, daily range): BP systolic 135–154; BP diastolic 60–103; PULSE 72–88; RESP 11–22; TEMP 36.5–37; O2SAT 91–100; BMI 35.3
--- NOTE | ~2022-08-12 | XR_ITS ---
EXAM: XR abdomen NG/feed tube insert DATE: 08/12/2022 22:52 HISTORY: ng insert . COMPARISON: None available. FINDINGS: Left basilar atelectasis. Small left pleural effusion. NG tube, tip and side port project over the stomach. Normal upper abdominal bowel gas pattern. IMPRESSION: NG tube, in good position. Reviewed, dictated and finalized at location K. IMPRESSION: NG tube, in good position.
--- NOTE | ~2022-08-12 | XR_ITS ---
Upright portable view of the abdomen Clinical history: NG tube placement Findings: NG tube is in satisfactory position. Suggestion of wall thickening of multiple small bowel loops. No definite free air. No abnormal mass lesion or calcification is seen. Osseous structures are intact. Impression: NG tube in satisfactory position. Possible wall thickening of multiple small bowel loops. Correlate for infectious/inflammatory enterit is. Reviewed, dictated and finalized at location . Impression: NG tube in satisfactory position. Possible wall thickening of multiple small bowel loops. Correlate for infectiou s/inflammatory enteritis.
--- NOTE | ~2022-08-12 | CT_ITS ---
EXAMINATION: CT abdomen pelvis w con DATE: 08/12/2022 18:17 INDICATION: abdominal pain with elevated lipase TECHNIQUE: Computed tomography (CT) of the abdomen and pelvis was performed with 100 mL Omnipaque-350 intravenous contrast. Automated exposure control and iterative reconstruction technique were employe d. The dose-length product was 1102.73 mGy-cm. COMPARISON: 02/19/2021. FINDINGS: Lower thorax: Bibasilar atelectasis/scar. Liver: Normal. Biliary/Gallbladder: Gallbladder is normal. No bile duct dilation. Pancreas: Mild atrophy. Chronic calcifications in the uncinate process. Spleen: Granulomatous calcifications Adrenals:No mass. Kidneys: No mass, stone, or hydronephrosis. GI tract: Mild distal esophageal and gastric wall edema. Multiple loops of moderately dilated small b owel in the left upper abdomen, transition point in the left mid abdomen (axial image [id number]). Bria l appendix. Diverticulosis without diverticulitis. Mesentery/Peritoneum: No ascites, mass, or free air. Mesenteric edema/inflammation involving the mese ntery of the dilated small bowel loops, with multiple pathologically enlarged lymph nodes, with fat h alos. Retroperitoneum: No mass. Atherosclerotic abdominal aortic and/or arterial calcifications. Pelvis: Distended urinary bladder with wall thickening. Prostatomegaly. Soft Tissues: Soft tissues and body wall unremarkable. Bones: No acute osseous finding. IMPRESSION: Sclerosing mesenteritis. Proximal small bowel dilation, transition point in the left mid abdomen, con cerning for early complete/partial obstruction versus ileus, likely related to the adjacent mesenteri tis. Reviewed, dictated and finalized at location K. IMPRESSION: Sclerosing mesenteritis. Proximal small bowel dilation, transition point in the left mid abdomen, concerning for early complete/partial obstruction versus ile us, likely related to the adjacent mesenteritis.
--- NOTE | ~2022-08-12 | XR_ITS ---
EXAMINATION: XR sm bowel follow through WS DATE: 08/13/2022 15:50 INDICATION: Small bowel obstruction versus ileus TECHNIQUE: Phone Manager radiograph(s) of the abdomen was/were obtained. Oral water-soluble contrast was adm inistered by the patient's existing nasogastric tube and sequential radiographs of the abdomen were o btained until oral contrast was noted to be in the proximal colon. COMPARISON: CT dated 08/12/2022 FINDINGS: Nasogastric tube tip in the body of the stomach with proximal side-port in what appears be a small sl iding-type hiatal hernia. Transit time from the stomach to proximal colon was approximately 30 minute s. There is normal caliber and mucosal fold pattern throughout the small bowel. Phleboliths in the pe lvis. IMPRESSION: 1. Normal small bowel follow-through study. No obstruction. 2. Nasogastric tube tip in the body of the stomach with proximal side-port within a very small slidin g-type hiatal hernia. Consider advancement by [address] the proximal side-port below level of the gastroesophageal junction. Reviewed, dictated and finalized at location A. IMPRESSION: 1. Normal small bowel follow-through study. No obstruction. 2. Nasogastric tube tip in the body of the stomach with proximal side-port with in a very small sliding-type hiatal hernia. Consider advancement by 4 cm to franny ce the proximal side-port below level of the gastroesophageal junction.
--- NOTE | ~2022-08-12 | XR_ITS ---
EXAMINATION: XR abdomen obstructive series DATE: 08/13/2022 08:21 INDICATION: Small bowel obstruction TECHNIQUE: Supine and upright views of the abdomen. FINDINGS: Comparison to 08/13/2022 and 08/12/2022 The visualized lung parenchyma is normal.. There is a nonobstructive bowel gas pattern. Gas and stool are seen throughout the colon to the level of the rectum. There is no free air. NG tube in the stom ach. There is residual contrast in the bladder which is moderately distended. No acute osseous abnorm ality. IMPRESSION: 1. No acute abdominal abnormality. Reviewed, dictated and finalized at location L.
[2022-08-12 15:40] LABS: Glucose Point of Care 160 mg/dl (65-105)
--- NOTE | 2022-08-12 16:35 | ED.GENADULT ---
HPI - General Adult General Chief complaint: Recheck/Abnormal Lab/Rx <Lloyd Madera APRN - Last Filed: 08/12/22 19:11> Stated complaint: low blo0od sugar <Lloyd Madera APRN - Last Filed: 08/12/22 19:11> Time Seen by Provider: 08/12/22 16:25 <Lloyd Madera APRN - Last Filed: 08/12/22 19:11> History of Present Illness HPI narrative: 77-year-old male presents with nausea vomiting diarrhea that started at 1030 this morning. Patient states he went to breakfast and friends and started having the symptoms 2 hours after eating. Patient is an insulin dependent diabetic. Patient states his blood sugar dropped to 50 but he was unable to keep any food down. Patient denies any history of abdominal issues. Patient is concerned he was going to develop DKA. <Lloyd Madera APRN - Last Filed: 08/12/22 19:11> 77-year-old male presents with nausea vomiting diarrhea that started at 1030 this morning. Patient states he went to breakfast and friends and started having the symptoms 2 hours after eating. Patient is an insulin dependent diabetic. Patient states his blood sugar dropped to 50 but he was unable to keep any food down. Patient denies any history of abdominal issues. Patient is concerned he was going to develop DKA. <Anna Ward MD - Last Filed: 08/14/22 19:33> Onset (ago): hour(s) (6) <Lloyd Madera APRN - Last Filed: 08/12/22 19:11> Associated symptoms: nausea/vomiting <Lloyd Madera APRN - Last Filed: 08/12/22 19:11> Related Data Home medications: Home Medications Medication Instructions Recorded Confirmed aspirin 81 mg tablet,delayed 81 mg PO DAILY 04/20/19 08/13/22 release gabapentin 400 mg capsule 400 mg PO BID 04/20/19 08/13/22 metformin 1,000 mg tablet 1,000 mg PO BID 04/20/19 08/13/22 paroxetine HCl 40 mg tablet 40 mg PO DAILY 04/20/19 08/13/22 rosuvastatin 40 mg tablet 40 mg PO QPM 04/20/19 08/13/22 tamsulosin 0.4 mg capsule 0.4 mg PO QPM 04/20/19 08/13/22 Novolog U-100 Insulin aspart 2 units continuous sub-Q infusn 01/06/20 08/13/22 (via wearable injectr) Q60M cyanocobalamin (vitamin B-12) 1,000 mcg PO DAILY 01/06/20 08/13/22 1,000 mcg tablet melatonin 3 mg tablet 6 mg PO HS PRN Insomnia 01/06/20 08/13/22 polyvinyl alcohol 1.4 % eye drops 1 drp ophthalmic (eye) QID 01/06/20 08/13/22 (Artificial Tears (polyvinyl alcohol)) insulin lispro 100 unit/mL 1 sliding scale dose subcut 10/25/20 08/13/22 subcutaneous cartridge (Humalog USEASDIRECTD U-100 Insulin) levothyroxine 100 mcg tablet 150 mcg PO DAILY 01/30/22 08/13/22 <Lloyd Madera APRN - Last Filed: 08/12/22 19:11> Allergies/adverse reactions: Allergies Allergy/AdvReac Type Severity Reaction Status Date / Time empagliflozin Allergy Severe DIABETIC Verified 08/12/22 17:48 KETOACIDOSIS atorvastatin Allergy Unknown unknown Verified 08/12/22 17:48 pioglitazone Allergy Unknown Unknown Verified 08/12/22 17:48 <Lloyd Madera APRN - Last Filed: 08/12/22 19:11> Review of Systems Review of Systems: A 10 system review of systems was completed on the patient and is negative except for what is stated in the HPI. Nursing and ancillary documentation was reviewed. <Lloyd Madera APRN - Last Filed: 08/12/22 19:11> [facility] Past Medical History Medical History: Medical History Abnormal EKG Acute non-recurrent maxillary sinusitis (~11/2021) Acute sinusitis Aftercare following left knee joint replacement surgery Arthritis of left knee Asbestosis be reading chest x-ray 12/07/2019 with bilateral chest wall pleural plaques, pneumoconiosis with history of asbestos exposure. Pulmonary function study on 01/05/2021 with FEV1 61% of predicted with FEF 25-75 at 63%. At high risk for falls BMI 33.0-33.9,adult BMI 34.0-34.9,adult BMI 35.0-35.9,adult Body mass index (bmi) 32.0-32.9, adult (06/19/17) BPH without obstruction/l
[2022-08-12] MEDS: ONDANSETRON INJ 4 MG/2 ML VIAL IV PUSH (17:44)
[2022-08-12 17:45] LABS: Hematocrit 41.9 % (42.0-52.0); Hemoglobin 13.5 g/dL (14.0-18.0); Mean Corpuscular HGB Conc 32.2 g/dl (32-36); Mean Corpuscular Hemoglobin 29.8 pg (26-34); Mean Corpuscular Volume 92.5 fl (80-100); Mean Platelet Volume 9.6 fl (7.4-10.4); Platelet Count Result 153 k/mm3 (150-375); Red Blood Count 4.53 M/mm3 (4.6-6.20); Red Cell Distribution Width 13.2 % (11.5-14.5); White Blood Count 7.4 K/mm3 (4.5-10.0)
[2022-08-12] MEDS: SODIUM CHLORIDE 0.9% IV 1,000 ML 999 ML IV CONT (17:45)
[2022-08-12 17:49] LABS: Appearance Urine Clear (Clear); Bacteria Urine None Seen /hpf; Bilirubin Urine Negative (Negative); Blood Urine Negative (Negative); Color Urine Yellow (Yellow); Glucose Urine UA Negative (Negative); Ketones Urine 1+ mg/dL (Negative); Leukocyte Esterase Ur Negative LEU/UL (Negative); Nitrate Urine Negative (Negative); Non Pathogenic Casts 0-2; Protein Urine 2+ mg/dL (Negative); RBC Urine 0-2 /hpf (0-2); Squamous Epithelial Cell Urine None seen /hpf (Few); WBC Urine 0-5 /hpf; pH Urine 6.5 (5.0-9.0)
[2022-08-12 17:52] LABS: Alanine Aminotransferase 26 U/L (6-50); Albumin Level 4.2 g/dL (3.5-5.1); Alkaline Phosphatase 49 U/L (38-126); Anion Gap 8 mmol/L (8-16); Aspartate Amino Transferase 29 U/L (17-59); Bilirubin,Total 0.8 mg/dL (0.2-1.3); Blood Urea Nitrogen 17 mg/dL (9-20); Calcium 8.8 mg/dL (8.4-10.2); Carbon Dioxide 28 mmol/L (22-30); Chloride 103 mmol/L (98-107); Estimated CRCL calculation 90 ml/min; Estimated Glomerular Filt Rate > 60; Glucose 157 mg/dL (65-110); Lipase 368 U/L (23-300); Potassium 4.4 mmol/L (3.4-5.0); Sodium 139 mmol/L (137-145)
[2022-08-12 17:53] LABS: Add Urine Microscopic? YES
[2022-08-12 18:11] LABS: Band Neutrophils Percent 4 % (0-6); Lymphocytes Absolute Manual 0.51 K/mm3 (1.1-4.5); Monocytes Absolute Manual 0.74 K/mm3 (0.1-0.90); Monocytes Percent Manual 10 % (3-9); Neutrophils Absolute Manual 6.14 K/mm3 (1.3-6.7); Neutrophils Percent Manual 79 % (46-73); Platelet Estimate Adequate (Adequate); Schistocytes None Seen (NORMAL); Total Cells Counted 100
[2022-08-12 19:51] LABS: Amylase 117 U/L (30-110)
--- NOTE | 2022-08-12 21:58 | PM.IMHP ---
H&P: HPI History of Present Illness Date/Time: 08/12/22 21:58 Chief Complaint: low blood sugar Narrative: This is a 77-year-old male patient who has insulin-dependent. The patient came to the emergency room with complaints of nausea vomiting and diarrhea since 02/03 this morning. The patient went out to eat breakfast with his friends and started having symptoms 2 hours after eating. The patient is insulin-dependent diabetic. Patient stated that his blood sugar dropped to 50 but he is unable to keep any food down. His H&H is 13.5 and 41.9. His blood sugar was noted to be 160 and then 157. His amylase was [address] of the abdomen was read as the following.Sclerosing mesenteritis. Proximal small bowel dilation, transition point in the left mid abdomen, concerning for early complete/partial obstruction versus ileus, likely related to the adjacent mesenteritis. Surgery has been consulted. An NG tube has been ordered. Abdominal x-ray was read as NG tube in good position. The patient was given IV fluids and Zofran. The patient is being admitted to observation status on the date of service of 08/06/2022. Review of Systems Review of Systems: All systems reviewed & are unremarkable except as noted in HPI and below Constitutional: Constitutional: Reports as per HPI and Reports no additional constitutional complaints Eyes: Eyes: Reports as per HPI and Reports no additional eye complaints ENT: Reports system reviewed and no additional complaints, except as documented and Reports Normal hearing present Cardiovascular: Cardiovascular: Reports no additional cardiovascular complaints Respiratory: Respiratory: Reports no additional respiratory complaints and Reports no additional respiratory complaints Gastrointestinal: Gastrointestinal: Reports as per HPI and Reports no additional gastrointestinal complaints Musculoskeletal: Musculoskeletal: Reports no additional musculoskeletal complaints Integumentary/Breasts: Skin/Breast: Reports system reviewed and no additional complaints, except as docu and Reports as per HPI Neurologic: Reports system reviewed and no additional complaints, except as documented, Reports as per HPI and Reports Normal hearing present Psychiatric: Psychiatric: Reports no additional psychiatric complaints and Reports as per HPI Endocrine: Endocrine: Reports no additional endocrine complaints Hematologic/Lymphatic: Hematologic/Lymphatic: Reports no additional hematologic/lymphatic complaints Allergic/Immunologic: Allergic/Immunologic: Reports no additional allergic/immunologic complaints PMFSH Past Medical History Medical History Abnormal EKG Acute non-recurrent maxillary sinusitis (~11/2021) Acute sinusitis Aftercare following left knee joint replacement surgery Arthritis of left knee Asbestosis be reading chest x-ray 12/07/2019 with bilateral chest wall pleural plaques, pneumoconiosis with history of asbestos exposure. Pulmonary function study on 01/05/2021 with FEV1 61% of predicted with FEF 25-75 at 63%. At high risk for falls BMI 33.0-33.9,adult BMI 34.0-34.9,adult BMI 35.0-35.9,adult Body mass index (bmi) 32.0-32.9, adult (06/19/17) BPH without obstruction/lower urinary tract symptoms PSA normal at 1.6 in September of 2021. 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 EGD was normal as well. Fit test was negative on 01/15/2022 per Controlled type 2 diabetes mellitus with hyperglycemia, with long-term current use of insulin Glucose 127 and hemoglobin A1c 8.0 , urine microalbumin ratio elevated at 40 on 09/25/2021. Fasting glucose 127 and hemoglobin A1c 8.0 on 09/25/2021 with A1c at 7.6 in October,. COVID-19 (11/20/21) symptoms started today with positive home
--- NOTE | 2022-08-12 22:51 | PC.NURSE ---
Abd xray reviewed by Dr. Dunn and NG tube is OK to use
[2022-08-12] MEDS: SODIUM CHLORIDE 0.9% IV 1,000 ML 125 ML IV CONT (23:12)
--- NOTE | 2022-08-13 02:02 | PC.NURSE ---
Per Dr. Robyn SHANKAR recheck of NG tube placement on 08/13/2022 has been reviewed and was given the okay to use.
[2022-08-13 05:06] VITALS: BP 128/58; PULSE 70; RESP 18; TEMP 36.5; O2SAT 93
[2022-08-13] MEDS: LEVOTHYROXINE SODIUM INJ 100 MCG/5 ML VIAL 75 MCG IV PUSH (06:23)
[2022-08-13 06:26] LABS: Basophils Percent Auto 0.2 % (0.2-1.2); Eosinophils Absolute Auto 0.1 K/mm3 (0-0.3); Hematocrit 37.3 % (42.0-52.0); Hemoglobin 11.8 g/dL (14.0-18.0); Immature Granulocyte Absolute 0.01 K/mm3 (0.00-0.031); Immature Granulocyte Percent A 0.2 % (0-0.5); Mean Corpuscular HGB Conc 31.6 g/dl (32-36); Mean Corpuscular Hemoglobin 29.6 pg (26-34); Mean Corpuscular Volume 93.5 fl (80-100); Mean Platelet Volume 9.8 fl (7.4-10.4); Monocytes Absolute Auto 0.4 K/mm3 (0.1-0.6); Monocytes Percent Auto 9.5 % (2.6-8.5); Neutrophils Absolute Auto 3.1 K/mm3 (1.3-6.7); Neutrophils Percent Auto 78.1 % (45.5-73.1); Platelet Count Result 140 k/mm3 (150-375); Red Blood Count 3.99 M/mm3 (4.6-6.20); Red Cell Distribution Width 13.3 % (11.5-14.5)
[2022-08-13 06:36] LABS: Hemoglobin A1C 7.3 % (<5.7)
[2022-08-13 06:39] LABS: Glucose Point of Care 94 mg/dl (65-105)
[2022-08-13 06:41] LABS: Alanine Aminotransferase 22 U/L (6-50); Albumin Level 3.5 g/dL (3.5-5.1); Alkaline Phosphatase 44 U/L (38-126); Anion Gap 7 mmol/L (8-16); Aspartate Amino Transferase 25 U/L (17-59); Bilirubin,Total 0.6 mg/dL (0.2-1.3); Blood Urea Nitrogen 13 mg/dL (9-20); Calcium 7.6 mg/dL (8.4-10.2); Carbon Dioxide 26 mmol/L (22-30); Chloride 105 mmol/L (98-107); Estimated CRCL calculation 90 ml/min; Estimated Glomerular Filt Rate > 60; Glucose 96 mg/dL (65-110); Magnesium 1.4 mg/dL (1.6-2.3); Potassium 3.7 mmol/L (3.4-5.0); Sodium 138 mmol/L (137-145)
[2022-08-13 06:43] LABS: Lactic Acid Reflex 0.6 mmol/L (0.7-2.0)
[2022-08-13 08:00] VITALS: BP 124/64; PULSE 61; RESP 18; TEMP 35.9; O2SAT 94
[2022-08-13] MEDS: SODIUM CHLORIDE 0.9% IV 1,000 ML 125 ML IV CONT (08:00)
[2022-08-13] MEDS: FAMOTIDINE 20 MG/2 ML VIAL IV PUSH ×2 (08:59→21:15)
--- NOTE | 2022-08-13 11:43 | PM.IMPN ---
Progress Note: A&P Assessment and Plan (1) Ileus: Code(s): K56.7 - Ileus, unspecified Status: Acute Assessment and Plan: Continue with NG tube to low intermittent section Surgery has been consulted. The patient is NPO (2) Hypothyroidism, unspecified: Code(s): E03.9 - Hypothyroidism, unspecified Status: Acute Assessment and Plan: I will give have of his oral dose in the IV form. (3) Gastro-esophageal reflux disease without esophagitis: Onset Date: ~09/2021 Code(s): K21.9 - Gastro-esophageal reflux disease without esophagitis Status: Acute Assessment and Plan: IV Pepcid (4) BPH without obstruction/lower urinary tract symptoms: Code(s): N40.0 - Benign prostatic hyperplasia without lower urinary tract symptoms Status: Acute Assessment and Plan: Patient is NPO with this time. His tamsulosin this on hold. The patient is retaining urine may consider Rubio catheter. (5) Mixed hyperlipidemia: Code(s): E78.2 - Mixed hyperlipidemia Status: Acute Assessment and Plan: The patient is NPO at this time. (6) Controlled type 2 diabetes mellitus with hyperglycemia, with long-term current use of insulin: Code(s): E11.65 - Type 2 diabetes mellitus with hyperglycemia; Z79.4 - supervisor [employer] (current) use of insulin Status: Acute Assessment and Plan: Accu-Cheks every 6 hours with sliding scale insulin. Check A1c Subjective Date/time seen: 08/13/22 11:43 Interval history: no complaints Exam Const: General: cooperative, healthy appearing, comfortable, no acute distress, well developed, awake, Physically active, average body habitus and well nourished Nutritional Appearance: average body habitus and well nourished Orientation/consciousness: oriented to person, oriented to place, oriented to time and patient oriented x3 Limitations: no limitations HENMT: Head: normal to inspection, No palpable skull fracture present, normocephalic and atraumatic Ears: hearing grossly normal bilaterally and external ears normal Face/Nose/Sinus: Normal external nose present and Normal nares present Eyes: General: appearance normal, both eyes and all related structures Alignment and Position: alignment normal Periorbital: periorbital findings normal Eyelids: eyelids normal Sclera: sclerae normal Pupils: Equal, round and reactive pupils present EOM: EOMs intact bilaterally Neck: Neck: normal visual inspection, full ROM, no lymphadenopathy, trachea midline and supple Chest: Chest palpation & inspection: normal inspection of the chest Resp: Effort & Inspection: normal respiratory effort Auscultation: clear to auscultation bilaterally Cardio: Palpation: normal PMI Rate: regular rate Rhythm: regular rhythm Heart sounds: S1 normal heart sound present and S2 normal heart sound present Peripheral pulses: Peripheral pulses 2+ throughout GI: Inspection: normal to inspection Auscultation: abnormal bowel sounds Rectal Exam: deferred Other: Umbilical hernia that is reducible Back/Spine/Pelvis: Cervical Spine: cervical ROM normal Skin: General skin exam: normal color Lesions: no lesions Rashes: no rashes Trauma: no lacerations or abrasions Wounds: no wounds Hair: normal Nails: normal Neuro: General: oriented to person, oriented to place, oriented to time and patient oriented x3 Cranial nerves: Yes Equal, round and reactive pupils present and Yes Normal hearing present Cognition (Neuro): normal cognition Speech: normal speech Gait exam (Neuro): Normal gait present Motor exam (neuro): 5/5 motor strength present throughout Sensory Exam: normal sensation Extrem: General: normal to inspection Right upper extremity: normal to inspection and shoulder/upper arm Left upper extremity: normal to inspection and shoulder/upper arm Right lower extremity: normal to inspection Left lower extremity: normal to inspection Psych: Appearanc
[2022-08-13 11:46] LABS: Glucose Point of Care 97 mg/dl (65-105)
--- NOTE | 2022-08-13 14:52 | PM.CNGS ---
Assessment and Plan Assessment and plan (1) Ileus: Code(s): K56.7 - Ileus, unspecified Status: Acute Assessment and Plan: CT reviewed and discussed with the patient. There is evidence of sclerosing mesenteritis with an ileus versus small bowel obstruction. He does not appear to have a high-grade small bowel obstruction. His abdominal exam is benign and he presented with vomiting/diarrhea. His obstructive series this morning shows a nonobstructive bowel gas pattern. Will order a water-soluble small bowel follow through to further evaluate. If the contrast moves through to the colon, then we will remove the NG tube and start a liquid diet. Continue NG tube, NPO, and IV fluids while awaiting SBFT results. (2) Sclerosing mesenteritis: Code(s): K65.4 - Sclerosing mesenteritis Status: Acute Assessment and Plan: CT suggests sclerosing mesenteritis with likely an ileus. Abdominal exam benign with no peritoneal signs. Denies having any abdominal pain. No indication for surgical intervention at this time. See plan above. (3) Nausea & vomiting: Code(s): R11.2 - Nausea with vomiting, unspecified Status: Acute Assessment and Plan: Improved following NG placement. See plan above. (4) Controlled type 2 diabetes mellitus with hyperglycemia, with long-term current use of insulin: Code(s): E11.65 - Type 2 diabetes mellitus with hyperglycemia; Z79.4 - terminal operations manager (current) use of insulin Status: Acute Assessment and Plan: Type 2 IDDM with an insulin pump. Plan I have discussed the patient's case and plan of care with Dr. De. History of Present Illness Consult details Consult date: 08/13/22 Reason for consult: other (Ileus vs small bowel obstruction) Requesting physician: Cm Bonilla MD Narrative: This is a 77-year-old man with type 2 IDDM, who presented to the ER yesterday with complaints of nausea, vomiting, and diarrhea. His symptoms came on abruptly about 2 hours after eating breakfast yesterday morning. He came home and had multiple episodes of vomiting and diarrhea. No close contacts with similar symptoms. Denies any blood in emesis or stool. He was concerned about his diabetes since he was unable to keep anything down and came into the ER for evaluation. CT scan abdomen and pelvis showed sclerosing mesenteritis with proximal small bowel dilation and transition point in the left mid abdomen concerning for early/partial obstruction versus ileus. He was admitted for observation. NG tube was placed and he has been NPO with IV fluids. Our service was consulted from the ER for ileus versus small bowel obstruction. He is now seen on the medical floor. He has only had about 200 cc from his NG tube total. He reports flatus today but no diarrhea or bowel movements today. He did have one loose stool in the ER yesterday. Denies any abdominal pain or bloating. No other complaints at this time. No previous abdominal surgeries. No previous small bowel obstructions. Review of Systems Review of Systems: All systems reviewed & are unremarkable except as noted in HPI and below Constitutional: Constitutional: Reports no additional constitutional complaints, Denies chills, Denies fatigue and Denies fever(s) Eyes: Eyes: Reports no additional eye complaints ENT: Reports system reviewed and no additional complaints, except as documented and Denies dizziness Cardiovascular: Cardiovascular: Reports no additional cardiovascular complaints, Denies chest pain and Denies leg edema Respiratory: Respiratory: Reports no additional respiratory complaints, Denies cough and Denies dyspnea Gastrointestinal: Gastrointestinal: Reports as per HPI, Reports no additional gastrointestinal complaints, Denies abdominal pain, Denies melena, Denies bloating, Denies hematochezia, Denies coffee ground emesis, Reports diarrhea, Reports nausea, Reports vomiting and Denies hematemesis Genitourinary: Genitourinary: Report
[2022-08-13 17:29] LABS: Glucose Point of Care 131 mg/dl (65-105)
[2022-08-13 20:00] VITALS: BP 135/60; PULSE 65; RESP 18; TEMP 36.5; O2SAT 93
[2022-08-13 22:00] VITALS: BP 135/60; PULSE 65; RESP 18; TEMP 36.5; O2SAT 93
[2022-08-14] VITALS: BP 156/69; PULSE 62; RESP 16; O2SAT 94
[2022-08-14] MEDS: SODIUM CHLORIDE 0.9% IV 1,000 ML 125 ML IV CONT ×2 (00:03→08:38)
[2022-08-14 04:00] VITALS: BP 152/59; PULSE 60; RESP 20; O2SAT 96
[2022-08-14 06:00] VITALS: BP 152/59; PULSE 60; RESP 20; O2SAT 96
[2022-08-14] MEDS: LEVOTHYROXINE SODIUM INJ 100 MCG/5 ML VIAL 75 MCG IV PUSH (06:45)
[2022-08-14 06:51] LABS: Glucose Point of Care 101 mg/dl (65-105)
[2022-08-14 06:51] LABS: Glucose Point of Care 92 mg/dl (65-105)
[2022-08-14 08:00] VITALS: BP 135/57; PULSE 58; RESP 16; TEMP 37.2; O2SAT 93
--- NOTE | 2022-08-14 08:16 | PC.NURSE ---
08/13/2022 @ 2300 Patient has order to use own insulin pump. No worksheet is present at patients bedside. This RN provided patient with worksheet and educated patient on how to use.
[2022-08-14] MEDS: FAMOTIDINE 20 MG/2 ML VIAL IV PUSH (08:38)
--- NOTE | 2022-08-14 11:02 | PC.NURSE ---
Called Sanna for assistance in placing intravenous access on patient. Patient's last IV was leaking and removed intact.
[2022-08-14 11:30] LABS: Glucose Point of Care 213 mg/dl (65-105)
[2022-08-14 12:00] VITALS: BP 136/59; PULSE 57; RESP 16; TEMP 36.9; O2SAT 95
--- NOTE | 2022-08-14 13:10 | PM.PNGS ---
Progress Note: A&P Assessment and Plan (1) Ileus: Code(s): K56.7 - Ileus, unspecified Status: Acute Assessment and Plan: SBFT normal with no evidence of an obstruction. Bowels are moving. His abdominal exam is benign. Nausea and vomiting has resolved. Will start full liquids and stop his IV fluids. Okay to advance diet as tolerated to a soft diabetic diet. (2) Sclerosing mesenteritis: Code(s): K65.4 - Sclerosing mesenteritis Status: Acute (3) Nausea & vomiting: Code(s): R11.2 - Nausea with vomiting, unspecified Status: Acute Assessment and Plan: Resolved. Plan I have discussed the patient's case and plan of care with Dr. De. Subjective Subjective Date/Time Seen: 08/14/22 13:10 Patient reports: no new complaints, feels better, tolerating liquids well, flatus and bowel movement Interval history: Patient feeling well today. Still no abdominal pain. He did have two episodes of vomiting after receiving the water-soluble contrast through his NG yesterday and his NG tube accidentally came out in the afternoon. This has since been left out. He has not had any further nausea or vomiting since. He has had multiple liquid bowel movements since his study. No other complaints today. Review of Systems Review of Systems: All systems reviewed & are unremarkable except as noted in HPI and below Exam Const: General: comfortable and no acute distress Orientation/consciousness: patient oriented x3 GI: Inspection: non-distended GI Palp: Yes Soft to palpation, No Tenderness to palpation present (GI), No Guarding due to palpation present (GI) and No Rebound tenderness present Auscultation: normal bowel sounds Objective Data Vital Signs Vital Signs: Vital Signs - 24 hr 08/13/22 20:00 08/13/22 22:00 08/14/22 00:00 Temperature 97.7 F 97.7 F Pulse Rate 65 65 62 Respiratory Rate 18 18 16 Blood Pressure 135/60 135/60 156/69 H Pulse Oximetry 93 93 94 Oxygen Delivery 08/14/22 04:00 08/14/22 06:00 08/14/22 08:00 Temperature 99 F Pulse Rate 60 60 58 L Respiratory Rate 20 20 16 Blood Pressure 152/59 H 152/59 H 135/57 L Pulse Oximetry 96 96 93 Oxygen Delivery 08/14/22 08:30 08/14/22 12:00 Temperature 98.4 F Pulse Rate 57 L Respiratory Rate 16 Blood Pressure 136/59 L Pulse Oximetry 95 Oxygen Delivery Room Air Intake/Output Intake/Output: Intake & Output 08/11/22 08/12/22 08/13/22 08/14/22 23:59 23:59 23:59 23:59 Intake Total 1000 2100 2020 Output Total 1275 250 Balance 1351 168 6885 Meds/Results Medications: Active Medications Generic Name Dose Route Start Last Admin Trade Name Freq PRN Reason Stop Dose Admin Dextrose 12.5 gm 08/13/22 00:19 Dextrose 50% 25 Gm/50 Ml Syringe IV PUSH PRN PRN Hypoglycemia Protocol Famotidine 20 mg 08/13/22 09:00 08/14/22 08:38 Famotidine 20 Mg/2 Ml Vial IV PUSH 20 mg Q12HR KIA Administration Glucagon 1 mg 08/13/22 00:19 Glucagon For Inj 1 Mg Vial IM PRN PRN Hypoglycemia Protocol Glucose 15 gm 08/13/22 00:19 Glucose Oral Gel 15 Gm Of Glucse In 37.5 Gm Tube PO PRN PRN Hypoglycemia Protocol Dextrose 1,000 mls @ 100 mls/hr 08/13/22 00:19 Dextrose 5% 1,000 Ml IVPB PRN PRN Hypoglycemia Protocol Insulin Aspart 2 - 5 units 08/13/22 06:00 08/14/22 11:45 Insulin Aspart (*Bkc) 100 Units/Ml SUB-Q Not Given Q6HR [facility] Protocol Levothyroxine Sodium 75 mcg 08/13/22 06:30 08/14/22 06:45 Levothyroxine Sodium Inj 100 Mcg/5 Ml Vial IV PUSH 75 mcg DAILY@0630 [facility] Administration Morphine Sulfate 4 mg 08/12/22 18:56 Morphine Sulfate (*Crx) 4 Mg/Ml Inj IV PUSH Q2H PRN Pain Rated 7-10 Ondansetron HCl 4 mg 08/12/22 18:56 Ondansetron Inj 4 Mg/2 Ml Vial IV PUSH Q4H PRN Nausea Phenol 1 spray 08/13/22 00:31 Phenol/Sod Pheno [place] (*Bkc) MUCOUS MEM PRN P
--- NOTE | 2022-08-14 13:23 | PCCCNOTE ---
On 08/14/22, the student, [Nette Garzon], provided care and completed [facility] documentation on this patient. I have reviewed the student's documentation and agree with the findings.
[2022-08-14 16:00] VITALS: BP 129/65; PULSE 56; RESP 16; TEMP 36.8; O2SAT 94
--- NOTE | 2022-08-14 17:36 | PM.DS ---
DS: Admitting Diagnosis Discharge Date 08/14/2022 Admitting Diagnosis Low blood sugar DS: Discharge Diagnosis Discharge Diagnosis (1) Ileus: Code(s): K56.7 - Ileus, unspecified Status: Acute Assessment and Plan: Continue with NG tube to low intermittent section Surgery has been consulted. The patient is NPO (2) Hypothyroidism, unspecified: Code(s): E03.9 - Hypothyroidism, unspecified Status: Acute Assessment and Plan: I will give have of his oral dose in the IV form. (3) Gastro-esophageal reflux disease without esophagitis: Onset Date: ~09/2021 Code(s): K21.9 - Gastro-esophageal reflux disease without esophagitis Status: Acute Assessment and Plan: IV Pepcid (4) BPH without obstruction/lower urinary tract symptoms: Code(s): N40.0 - Benign prostatic hyperplasia without lower urinary tract symptoms Status: Acute Assessment and Plan: Patient is NPO with this time. His tamsulosin this on hold. The patient is retaining urine may consider Rubio catheter. (5) Mixed hyperlipidemia: Code(s): E78.2 - Mixed hyperlipidemia Status: Acute Assessment and Plan: The patient is NPO at this time. (6) Controlled type 2 diabetes mellitus with hyperglycemia, with long-term current use of insulin: Code(s): E11.65 - Type 2 diabetes mellitus with hyperglycemia; Z79.4 - [facility] (current) use of insulin Status: Acute Assessment and Plan: Accu-Cheks every 6 hours with sliding scale insulin. Check A1c DS: Summary Hospital Course Reason for hospitalization: low blood sugar Narrative: This is a 77-year-old male patient who has insulin-dependent.? The patient came to the emergency room with complaints of nausea vomiting and diarrhea since 02/03 this morning.? The patient went out to eat breakfast with his friends and started having symptoms 2 hours after eating.? The patient is insulin-dependent diabetic.? Patient stated that his blood sugar dropped to 50 but he is unable to keep any food down.? His H&H is 13.5 and 41.9.? His blood sugar was noted to be 160 and then 157.? His amylase was 117 and lipase 368.? CT of the abdomen was read as the following.Sclerosing mesenteritis. Proximal small bowel dilation, transition point in the left mid abdomen, concerning for early complete/partial obstruction versus ileus, likely related to the adjacent mesenteritis.? Surgery has been consulted.? An NG tube has been ordered.? Abdominal x-ray was read as NG tube in good position.? The patient was given IV fluids and Zofran.? The patient is being admitted to observation status on the date of service of 08/06/2022. Hospital Course: Patient presented with abdominal concerning for small bowel obstruction and NG tube was placed a small-bowel follow-through showed normal bowel pattern seen by surgery service has started the patient on clear liquid patient is able to tolerate and clinically stable advanced the diet and will discharge the patient today Time Spent with Patient Time attestation: Total time spent providing and/or coordinating discharge services: Exam Narrative: Morbidly obese Patient is comfortable, NAD HEENT: eyes are clear and none icteric LUNGS:CTA HEART: RR S1S2 ABD: BS+, Soft and nontender Lower extremities: no edema SKIN: nonjaundiced Neuro: grossly intact. DS: Data Data Completed and Pending Labs on day of discharge: Labs from last 24 hours 08/14/22 08/14/22 08/14/22 11:27 05:19 00:27 POC Capillary Glucose 213 H 101 92 Discharge Plan Discharge Attending physician on discharge: Jazmine Lazar Consulting providers: Eusebio De; Emilia Yee; Cm Bonilla; Deepika Teixeira; Osman Durand; Artie Umaña; Nav Mcmanus; Tyler Olivarez Discharging Clinician: Jazmine Lazar Patient Disposition: Home, Self-Care Activity: as tolerated Diet: low fat Patient Instruct
== END 2022-08-14 18:05 | disposition home or self-care (01) | DRG 389 ==
LOC: ANHED 19:09 → ANH3MEDSUR 19:17
PROVIDERS: Nurse Practitioner; Admitting Provider Student in an Organized Health Care Education/Training Program; Emergency Provider Nurse Practitioner Family; PCP Family Medicine; Visit Provider Family Medicine
DX: K56.7 Ileus, unspecified (principal); K65.4 Sclerosing mesenteritis; J61 Pneumoconiosis due to asbestos and other mineral fibers; E11.42 Type 2 diabetes mellitus with diabetic polyneuropathy; E11.9 Type 2 diabetes mellitus without complications; E78.2 Mixed hyperlipidemia; K21.9 Gastro-esophageal reflux disease without esophagitis; N40.1 Benign prostatic hyperplasia with lower urinary tract symptoms; R35.1 Nocturia; M54.42 Lumbago with sciatica, left side; G47.33 Obstructive sleep apnea (adult) (pediatric); F43.10 Post-traumatic stress disorder, unspecified; F32.9 Major depressive disorder, single episode, unspecified; Z96.653 Presence of artificial knee joint, bilateral; Z79.82 Long term (current) use of aspirin; Z79.4 Long term (current) use of insulin; Z91.81 History of falling
CPT/HCPCS: 36415; 74019; 74177; 74250; 80053; 81001; 82150; 82948; 83036; 83605; 83690; 83735; 84443; 85025; 96361; 96374; 96375; 99285; A9270; G0378; J0131; J2405; J7030; Q9967

== ENCOUNTER 2023-01-15 10:29 | Emergency (ER) | payer MEDICARE, SELFPAY ==
--- NOTE | ~2023-01-15 | XR_ITS ---
[XR ribs LT 2V ] INDICATION: Left anterior rib pain after recent fall TECHNIQUE: Frontal projection of the upper left ribs, frontal projection of the lower left ribs, obli que projection of all the left ribs, frontal inspiratory chest x-ray for interpretation. FINDINGS: There are acute left fifth and sixth rib fractures anteriorly. There is an old healed left ninth rib fracture. There are no soft tissue abnormality seen. The lungs are clear. IMPRESSION: 1: Acute left fifth and sixth rib fractures. Reviewed, dictated and finalized at location B.
[2023-01-15 10:42] VITALS: BP 152/67; PULSE 57; RESP 16; TEMP 36.6; O2SAT 97
--- NOTE | 2023-01-15 10:55 | ED.URI ---
HPI - URI/Sore Throat General Chief Complaint: Upper Respiratory Infection Stated Complaint: Sinus/Left Side Body Pain Time Seen by Provider: 01/15/23 10:55 Source: patient Mode of arrival: ambulatory Limitations: no limitations History of Present Illness HPI Narrative: 78-year-old male presents with complaint of left-sided rib pain for 10 days. Patient reports that he stepped off a curb and fell while out of town in [place]. Denies hitting head, no LOC. Was able to get up on his own. Been taking Tylenol with no relief of pain. Called his primary care physician for appointment was told to come to here for x-ray. Patient also reports 6 days of fatigue, body aches, nasal congestion, headaches. Denies cough, shortness breast. Afebrile. Taking [id number] sinus medications to treat his symptoms. All systems reviewed and negative except as noted above. Related Data Home Medications Medication Instructions Recorded Confirmed aspirin 81 mg tablet,delayed 81 mg PO DAILY 04/20/19 01/15/23 release gabapentin 400 mg capsule 400 mg PO BID 04/20/19 01/15/23 metformin 1,000 mg tablet 1,000 mg PO BID 04/20/19 01/15/23 paroxetine HCl 40 mg tablet 40 mg PO DAILY 04/20/19 01/15/23 rosuvastatin 40 mg tablet 40 mg PO QPM 04/20/19 01/15/23 tamsulosin 0.4 mg capsule 0.4 mg PO QPM 04/20/19 01/15/23 Novolog U-100 Insulin aspart 2 units continuous sub-Q infusn 01/06/20 01/15/23 (via wearable injectr) Q60M cyanocobalamin (vitamin B-12) 1,000 mcg PO DAILY 01/06/20 01/15/23 1,000 mcg tablet melatonin 3 mg tablet 6 mg PO HS PRN Insomnia 01/06/20 01/15/23 polyvinyl alcohol 1.4 % eye drops 1 drp ophthalmic (eye) QID 01/06/20 01/15/23 (Artificial Tears (polyvinyl alcohol)) insulin lispro 100 unit/mL 1 sliding scale dose subcut 10/25/20 01/15/23 subcutaneous cartridge (Humalog USEASDIRECTD U-100 Insulin) levothyroxine 100 mcg tablet 150 mcg PO DAILY 01/30/22 01/15/23 Allergies Allergy/AdvReac Type Severity Reaction Status Date / Time empagliflozin Allergy Severe DIABETIC Verified 01/15/23 10:33 KETOACIDOSIS atorvastatin Allergy Unknown unknown Verified 01/15/23 10:33 pioglitazone Allergy Unknown Unknown Verified 01/15/23 10:33 Review of Systems Review of Systems: CONSTITUTIONAL: Denies fever, chills, or sweats. EYES: Denies visual changes, redness, or discharge. ENT: Reports rhinorrhea, congestion. Denies sore throat, or otalgia. CARDIOVASCULAR: Denies chest pain, palpitations, or edema. RESPIRATORY: Denies cough or dyspnea. GASTROINTESTINAL: Denies abdominal pain, nausea, vomiting, or diarrhea. GENITOURINARY: Denies dysuria or hematuria. SKIN: Denies rash or itching. MUSCULOSKELETAL: Denies back pain, joint pain. Reports myalgia. reports left-sided rib pain. NEUROLOGIC: Reports headache. Denies numbness, or weakness. PSYCHIATRIC: Denies anxiety or depression. All other systems reviewed are negative, except as documented in HPI. [facility] Past Medical History Medical History (Updated 01/15/23 @ 11:31 by Melba Hull NP) Abdominal pain Abnormal EKG Acute non-recurrent maxillary sinusitis (~11/2021) Acute sinusitis Aftercare following left knee joint replacement surgery Arthritis of left knee Asbestosis be reading chest x-ray 12/07/2019 with bilateral chest wall pleural plaques, pneumoconiosis with history of asbestos exposure. Pulmonary function study on 01/05/2021 with FEV1 61% of predicted with FEF 25-75 at 63%. At high risk for falls At low risk for fall BMI 33.0-33.9,adult BMI 34.0-34.9,adult BMI 35.0-35.9,adult Body mass index (bmi) 32.0-32.9, adult (06/19/17) BPH without obstruction/lower urinary tract symptoms PSA normal at 1.6 in September of 2021. 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 EGD was nor
== END 2023-01-15 11:38 | disposition home or self-care (01) ==
PROVIDERS: Emergency Provider Nurse Practitioner Family; PCP Family Medicine
DX: U07.1 COVID-19 (principal); S22.32XA Fracture of one rib, left side, initial encounter for closed fracture; W17.89XA Other fall from one level to another, initial encounter; M17.12 Unilateral primary osteoarthritis, left knee; N40.0 Benign prostatic hyperplasia without lower urinary tract symptoms; Z96.653 Presence of artificial knee joint, bilateral; E11.9 Type 2 diabetes mellitus without complications; Z79.4 Long term (current) use of insulin; Z86.16 Personal history of COVID-19; E11.42 Type 2 diabetes mellitus with diabetic polyneuropathy; K21.9 Gastro-esophageal reflux disease without esophagitis; E03.9 Hypothyroidism, unspecified; E78.2 Mixed hyperlipidemia; J61 Pneumoconiosis due to asbestos and other mineral fibers
CPT/HCPCS: 71100; 87426; 99213; C9803; G0463

== ENCOUNTER 2023-12-12 07:52 | Outpatient (CLI) | payer MEDICARE, SELFPAY ==
--- NOTE | ~2023-12-12 | CT_ITS ---
CT Scan of the Chest without Contrast: Clinical Indication: Dyspnea Technique: Contiguous sections were acquired throughout the chest without intravenous contrast. Dose reduction technique was used on this scan by utilizing automated exposure control and iterative recon struction technique. The dose-length product (DLP) was 482.36 mGy-cm. COMPARISON: 02/18/2022 Findings: There is no evidence of any significant mediastinal, hilar or axillary lymphadenopathy. The mediastin al soft tissues appear normal. There is no evidence of pleural or pericardial effusion. The lungs are clear, aside from mild atelectatic change or scarring at the lingula/left lung base. Images through the upper abdomen reveal no abnormalities. Impression: Mild atelectasis or scarring in the lingular/left lung base, otherwise clear lungs. Reviewed, dictated and finalized at [facility]. Impression: Mild atelectasis or scarring in the lingular/left lung base, otherwise clear joanne ngs.
--- NOTE | 2023-12-12 16:34 | WPDSIXMINUTE ---
Six Minute Walk Procedure Procedure Performed Pulmonary Stress Test (6 min walk) Six Minute Walk Six Minute Walk: This is a 6 minute walk test. The test was performed and interpreted in accordance with the 2014 ERS/ATS task force guidelines. Findings: The patient's resting room air oxygen saturation measured by pulse oximetry was 95% and heart rate was 64 bpm. Patient ambulated for 335 meters and oxygen saturation remained 94 to 96%. Heart rate at the end of the study was 84 bpm. The patient did not qualify for supplemental oxygen at rest or with ambulation. There are no prior studies for comparison.
--- NOTE | 2023-12-12 16:35 | WPDPFTINT ---
PFT Procedure Performed PFT Procedure Performed Spirometry with Pre/Post Bronchodilator Plethysmography (Lung Vol) Diffusing Cap (DLCO) Flow Vol Loop PFT Interpretation This is a pulmonary function test with pre and post-bronchodilator spirometry, plethysmography and diffusing capacity. The test was performed and results interpreted in accordance with the 2019 and 2005 ATS/ERS Task Force guidelines respectively using the Global Lung Function Initiative-2012 reference equations. Patient demonstrated good effort and cooperation. Reproducibility criteria were met. The quality of the pre bronchodilator spirometry maneuver was Grade B and post bronchodilator spirometry maneuver was Grade A. Of note, patient had difficulty with the diffusing testing and was only able to perform 1 maneuver. Findings: Spirometry: The contour of the expiratory flow tracing on the pre bronchodilator maneuvers is flattened. The contour the expiratory flow tracing on the post bronchodilator maneuvers is flattened in 1 of 3 maneuvers and has a knee pattern in 2 of 3 maneuvers. The contour the inspiratory flow tracing is truncated in all 6 maneuvers. The pre bronchodilator FVC is 3.49 L, 84% predicted. The pre bronchodilator FEV1 is 2.05 L, 66% predicted. The pre bronchodilator FEV1: FVC ratio is 59%. The post bronchodilator FVC is 3.61 L, representing a 3% increase. The post bronchodilator FEV1 is 2.62 L, representing a 28% increase. The post bronchodilator FEV1: FVC ratio 72%. Plethysmography: The total lung capacity is 6.07 L, 84% predicted. The functional residual capacity is 3.06 L, 79% predicted. The residual volume is 2.58 L, 99% predicted. Diffusing capacity: The diffusing capacity unadjusted for hemoglobin and carboxyhemoglobin is 19.5, 77% predicted. The diffusing capacity adjusted for alveolar volume is 4.12, 111% predicted. In comparison to prior pulmonary function testing on 02/18/2022, the patient had an expiratory knee pattern in 1 of 6 expiratory flow maneuvers and the inspiratory flow tracing was truncated in all 6 maneuvers. The post bronchodilator FVC is unchanged from 3.54 L to 3.61 L. The post bronchodilator FEV1 is unchanged from 2.62 L to 2.62 L. The total lung capacity is unchanged from 5.47 L to 6.07 L. The functional residual capacity is increased from 2.58 L to 3.06 L. The residual volume is increased from 2.25 L to 2.58 L. The diffusing capacity unadjusted for hemoglobin and carboxyhemoglobin is increased from 16.9 to 19.5. The diffusing capacity adjusted for alveolar volume is unchanged from 4.49 to 4.12. Impression: There is a reproducible knee pattern of the expiratory flow tracing which can be a normal variant or pathologic and has been attributed to a choke point section of the bronchial tree. The normal variant is more common in younger female patients, decreases with age and is more pronounced in the post bronchodilator efforts. The pattern has also been described with kyphosis, kyphoscoliosis, central obstructing mass, and post lung transplantation. The contour the expiratory flow tracing is flattened in 4 of the 6 maneuvers. The inspiratory flow tracing is truncated in all 6 maneuvers making it impossible to determine if the inspiratory flow tracing is also flattened. Concurrent flattening of the expiratory flow tracing and truncated inspiratory flow tracing are suggestive of technical limitations. Consider repeating spirometry if clinically indicated. The flattened expiratory flow tracing with a normal inspiratory flow tracing is consistent with a variable intrathoracic obstruction and can be seen with tracheomalacia of the intrathoracic airway, intrathoracic bronchogenic cyst, malignant tracheal lesions and vocal fold abnormalities. If the contour of the expiratory and inspiratory flow tracing were both flattened. this is consistent with a fixed obstruction and can be seen with extraluminal tracheal obstruction, tracheal st
== END 2023-12-12 07:53 | disposition home or self-care (01) ==
PROVIDERS: PCP Family Medicine; Visit Provider Nurse Practitioner Family
DX: R09.89 Other specified symptoms and signs involving the circulatory and respiratory systems (principal); J61 Pneumoconiosis due to asbestos and other mineral fibers; R06.09 Other forms of dyspnea; R94.2 Abnormal results of pulmonary function studies
CPT/HCPCS: 71250; 94060; 94618; 94726; 94729